=== PATIENT | female | born 1985 | race American Indian/Alaskan Native ===

== ENCOUNTER 2018-04-07 11:57 | Emergency (ER) | payer SELFPAY ==
[2018-04-07 13:53] LABS: Bacteria,Urine 1+ /HPF (Negative); Bilirubin,Urine NEG (Negative); Blood,Urine SM (Negative); Color,Urine Yellow (Yellow); HCG Qualitative,Urine Negative (Negative); Mucus,Urine FEW /HPF; Protein,Urine <15 mg/dL mg/dL (Negative); Urobilinogen,Urine < 2.0 mg/dL (<2.0)
[2018-04-07] MEDS ORDERED: TORADOL IM ONE (15:03)
--- NOTE | 2018-04-07 15:16 | Emergency Department Report ---
ED Female HPI - General Chief complaint: Urogenital-Female Stated complaint: PELVIC PAIN Time Seen by Provider: 04/07/18 14:47 Source: patient Mode of arrival: Ambulatory Limitations: No Limitations - History of Present Illness Initial comments: 32-year-old female with cough for IUD placement placed 2 years ago presents to the hospital pending a pelvic pain and inability to feel her IUD strings. Pelvic pain 2 days as moderate to severe in intensity, constant, worse palpation and movement. Patient states she had some vaginal spotting yesterday at the urination but did not have any continued vaginal bleeding. She denies vaginal discharge, fever, nausea, vomiting, or dysuria. She sexually active with one partner and does not use condoms. - Related Data Previous Rx's Medication Instructions Recorded Last Taken Type Ibuprofen [Motrin 600 MG tab] 600 mg PO Q6H PRN #30 tablet 03/03/16 Unknown Rx Ibuprofen [Motrin] 800 mg PO Q8HR PRN #30 tablet 04/07/18 Unknown Rx traMADol [Ultram 50 MG tab] 50 mg PO Q6HR PRN #20 tablet 04/07/18 Unknown Rx Allergies Allergy/AdvReac Type Severity Reaction Status Date / Time Sulfa (Sulfonamide Allergy Severe Swelling Verified 01/27/16 13:42 Antibiotics) ED Review of Systems ROS: Stated complaint: PELVIC PAIN Other details as noted in HPI Comment: All other systems reviewed and negative ED Past Medical Hx - Past Medical History Hx Hypertension: No Hx Congestive Heart Failure: No Hx Diabetes: No Hx Deep Vein Thrombosis: No Hx Renal Disease: No Hx Sickle Cell Disease: No Hx Seizures: No Hx Asthma: No Hx COPD: No Hx HIV: No - Surgical History Hx Cholecystectomy: Yes Additional Surgical History: r) hand surg - Social History Smoking Status: Never Smoker Substance Use Type: None - Medications Home Medications: Home Medications Medication Instructions Recorded Confirmed Last Taken Type Ibuprofen [Motrin 600 MG tab] 600 mg PO Q6H PRN #30 tablet 03/03/16 Unknown Rx Ibuprofen [Motrin] 800 mg PO Q8HR PRN #30 tablet 04/07/18 Unknown Rx traMADol [Ultram 50 MG tab] 50 mg PO Q6HR PRN #20 tablet 04/07/18 Unknown Rx ED Physical Exam - General Limitations: No Limitations - Other Other exam information: General: No limitations, patient is alert in no acute distress Head exam: Atraumatic, normocephalic Eyes exam: Normal appearance ENT: Moist mucous membrane, normal oropharynx Neck exam: Normal inspection, full range of motion Respiratory exam: Clear to auscultation bilateral, no wheezes, rales, crackles Cardiovascular: Normal rate and rhythm, normal heart sounds Abdomen: Soft, nondistended, pelvic tenderness, with normal bowel sounds, no rebound, or guarding : IUD string visualized, white non-mild odorous discharge noted, no CMT Extremity: Full range of motion normal inspection no deformity Back: Normal Inspection, full range of motion, no tenderness Neurologic: Alert, oriented x3, cranial nerves intact, no motor or sensory deficit Psychiatric: normal affect, normal mood Skin: Warm, dry, intact ED Course Vital Signs 04/07/18 04/07/18 12:49 17:03 Temperature 99.3 F 98.5 F Pulse Rate 81 58 L Respiratory 16 Rate Blood Pressure 116/64 Blood Pressure 98/53 [Left] O2 Sat by Pulse 100 98 Oximetry - Consultations Consultation #1: 04/07/18 Dr Oanh Thayer protective services case worker was consulted and came to the ED to remove IUD and rec Depo shot (see her notes and orders) ED Medical Decision Making - Lab Data wet prep< 20 clue cells. neg trich, yeast - Radiology Data Radiology results: report reviewed read by radiology transvag/pelvic us intrauterine device in the endocervical canal - Medical Decision Making Pelvic pain Secondary to migration of intrauterine device into the endocervical canal IUD removed by HIGHER LEVEL TEACHING ASSISTANT Depo-Provera prior to discharge for protection Outpatient follow-up recommended GC/chlamydia pending Wet prep less than 20 clue cells without symptoms of bacterial vaginosis - Differential Diagnosis PID, cervicitis, IUD misplacement, vaginitis, UTI, ectopic Critical Care Time: No Critical care attestation.: If time is entered above; I have spent that time in minutes in the direct care of this critically ill patient, excluding procedure time. ED Disposition Clinical Impression: IUD migration, Pelvic pain Disposition: TO HOME OR SELFCARE Is pt being admited?: No Does the pt Need Aspirin: No Condition: Stable Instructions: Abdominal Pain (ED) Additional Instructions: Take the medication as prescribed and as needed for pain. IUD was removed by the HIGHER LEVEL TEACHING ASSISTANT doctor planning consultant and you were treated with Depo-Provera for protection. Follow-up with the HIGHER LEVEL TEACHING ASSISTANT doctor provided with a HIGHER LEVEL TEACHING ASSISTANT doctor of your choice. Return is symptoms worsen as indicated by your discharge instructions. Your gonorrhea and chlamydia tests are pending and take approximately 3-4 days result. You may obtain results in medical records with a photo ID. You may also obtain results through the follow-up doctor office via medical record request. Prescriptions: Ibuprofen [Motrin] 800 mg PO Q8HR PRN #30 tablet PRN Reason: Pain traMADol [Ultram 50 MG tab] 50 mg PO Q6HR PRN #20 tablet PRN Reason: Pain Referrals: JOSE MANUEL THAYER MD [Staff Physician] - 3-5 Days (HIGHER LEVEL TEACHING ASSISTANT ) Time of Disposition: 18:41
[2018-04-07 17:05] VITALS: BP 98/53
[2018-04-07] MEDS ORDERED: TYLENOL PO ONE (17:34)
--- NOTE | 2018-04-07 18:22 | Consultation ---
History of Present Illness Consult date: 04/07/18 Requesting physician: JEROME LO Reason for consult: other (Pelvic Pain, Malpositioned IUD ) History of present illness: Pt is a 32 year old -[place] female LMP March 2018 (unsure date) presents with two days of worsening pelvic pain. She presented to the ED today when the pain intensified. She had a pelvic ultrasound that revealed an IUD in the endocervical canal. I have been consulted for IUD removal. Past History Past Medical History: no pertinent history Past Surgical History: cholecystectomy Social history: no significant social history - Obstetrical History : 7 Para: 6 Hx # Term Pregnancies: 6 Number of Pregnancies: 0 Spontaneous Abortions: 0 Induced : 1 Number of Living Children: 6 Medications and Allergies Allergies Allergy/AdvReac Type Severity Reaction Status Date / Time Sulfa (Sulfonamide Allergy Severe Swelling Verified 01/27/16 13:42 Antibiotics) Home Medications Medication Instructions Recorded Confirmed Last Taken Type Ibuprofen [Motrin 600 MG tab] 600 mg PO Q6H PRN #30 tablet 03/03/16 Unknown Rx Review of Systems All systems: negative - Vital Signs Vital signs: Vital Signs Temp Pulse BP Pulse Ox 99.3 F 81 116/64 100 04/07/18 12:49 04/07/18 12:49 04/07/18 12:49 04/07/18 12:49 Temp Pulse Resp BP Pulse Ox 98.5 F 58 L 16 98/53 98 04/07/18 17:03 04/07/18 17:03 04/07/18 17:03 04/07/18 17:03 04/07/18 17:03 - Physical Exam Genitourinary (Female): Positive: normal external genitalia Cervix: Positive: other (Cervix with inferior aspect of IUD visible at external os ) Results All other labs normal. Assessment and Plan A: Pelvic Pain Malpositioned IUD P: IUD has been removed in its entirety DepoProvera 150 mg IM for contraception prior to discharge Pt should follow up with a HARDNESS TESTER for routine gynecologic care
[2018-04-07] MEDS ORDERED: DEPO-PROVERA (CONTRACEPTION) IM ONE (19:00)
--- NOTE | 2018-04-09 14:27 | Ultrasound Report ---
FINAL REPORT PROCEDURE: US TRANSVAGINAL and transabdominal TECHNIQUE: Real-time transabdominal sonography in multiple planes of the pelvis was performed. The pelvic structures were not optimally visualized. Transvaginal sonography was then performed to better evaluate the structures and/or abnormalities described below with image documentation. Grayscale, color flow Doppler imaging and velocity spectral waveform analysis of the ovaries was employed (duplex imaging). CPT 76754, 67400, and 69786 HISTORY: copper iud pelvic pain COMPARISON: No prior studies are available for comparison. FINDINGS: UTERUS Size: 7.5 x 3.1 x 4.8 cm. Endometrial thickness: 8 mm. Orientation: Retroverted. Cervix: Intrauterine device is seen in the endocervical canal. Fibroids/masses: None. RIGHT Ovary: 3.5 x 2.5 x 2.3 cm. Appearance: Normal. Doppler images: Normal spectral waveforms and color flow. The systolic and diastolic velocities are within normal limits. LEFT Ovary: 3.3 x 1.8 x 2.7 cm. Appearance: Normal. Doppler images: Normal spectral waveforms and color flow. The systolic and diastolic velocities are within normal limits. Pelvic fluid: None. Other: None. IMPRESSION: Intrauterine device is in the endocervical canal. Recommend gynecologic consultation.
--- NOTE | 2018-04-09 14:27 | Ultrasound Report ---
FINAL REPORT PROCEDURE: US TRANSVAGINAL and transabdominal TECHNIQUE: Real-time transabdominal sonography in multiple planes of the pelvis was performed. The pelvic structures were not optimally visualized. Transvaginal sonography was then performed to better evaluate the structures and/or abnormalities described below with image documentation. Grayscale, color flow Doppler imaging and velocity spectral waveform analysis of the ovaries was employed (duplex imaging). CPT 93190, 92009, and 86422 HISTORY: copper iud pelvic pain COMPARISON: No prior studies are available for comparison. FINDINGS: UTERUS Size: 7.5 x 3.1 x 4.8 cm. Endometrial thickness: 8 mm. Orientation: Retroverted. Cervix: Intrauterine device is seen in the endocervical canal. Fibroids/masses: None. RIGHT Ovary: 3.5 x 2.5 x 2.3 cm. Appearance: Normal. Doppler images: Normal spectral waveforms and color flow. The systolic and diastolic velocities are within normal limits. LEFT Ovary: 3.3 x 1.8 x 2.7 cm. Appearance: Normal. Doppler images: Normal spectral waveforms and color flow. The systolic and diastolic velocities are within normal limits. Pelvic fluid: None. Other: None. IMPRESSION: Intrauterine device is in the endocervical canal. Recommend gynecologic consultation. PROCEDURE: TECHNIQUE: HISTORY: COMPARISON: FINDINGS: IMPRESSION:
== END 2018-04-07 19:01 | disposition home or self-care (01) ==
LOC: ED 11:57
DX: T83.89XA Other specified complication of genitourinary prosthetic devices, implants and grafts, initial encounter (principal); R10.2 Pelvic and perineal pain; Y92.89 Other specified places as the place of occurrence of the external cause
CPT/HCPCS: 76830; 76856; 81001; 81025; 87210; 87591; 96372; 99284; J1050; J1885

== ENCOUNTER 2018-10-30 08:50 | Emergency (ER) | payer SELFPAY ==
[2018-10-30 09:01] VITALS: BP 117/72
[2018-10-30] MEDS ORDERED: IBUPROFEN PO ONE (09:16)
[2018-10-30] MEDS ORDERED: VEETIDS PO ONE (09:16)
--- NOTE | 2018-10-30 09:18 | Emergency Department Report ---
HPI - General Chief Complaint: Dental/Oral Time Seen by Provider: 10/30/18 09:03 - HPI HPI: 43-year-old -[place] female presents to the emergency department with complaint of a week history of a dental abscess. She says it started off as a small bump but has gotten progressively bigger and more painful. She complains of some swelling to the right side of her face for the past 2 or 3 days. She has not taken anything for her symptoms prior to arrival. She denies any significant past medical history. She denies any fever, drooling, difficulty swallowing. ED Past Medical Hx - Past Medical History Previous Medical History?: Yes Hx Hypertension: No Hx Congestive Heart Failure: No Hx Diabetes: No Hx Deep Vein Thrombosis: No Hx Renal Disease: No Hx Sickle Cell Disease: No Hx Seizures: No Hx Asthma: No Hx COPD: No Hx HIV: No Additional medical history: Vaginal delivery x 6 - Surgical History Past Surgical History?: Yes Hx Cholecystectomy: Yes Additional Surgical History: rl hand surg - Social History Smoking Status: Current Every Day Smoker Substance Use Type: Alcohol - Medications Home Medications: Home Medications Medication Instructions Recorded Confirmed Last Taken Type Ibuprofen [Motrin 600 MG tab] 600 mg PO Q6H PRN #30 tablet 03/03/16 Unknown Rx Ibuprofen [Motrin] 800 mg PO Q8HR PRN #30 tablet 04/07/18 Unknown Rx traMADol [Ultram 50 MG tab] 50 mg PO Q6HR PRN #20 tablet 04/07/18 Unknown Rx HYDROcodone/APAP 5-325 [[place] 1 each PO Q6HR PRN #10 tablet 10/30/18 Unknown Rx 5/325] Penicillin Vk [Veetids TAB] 500 mg PO Q6H #28 tablet 10/30/18 Unknown Rx ED Review of Systems ROS: Stated complaint: SWOLLEN ON SIDE OF FACE Other details as noted in HPI Comment: All other systems reviewed and negative Constitutional: denies: chills, fever Eyes: denies: eye pain, eye discharge, vision change ENT: dental pain, other (facial swelling) Respiratory: denies: cough, shortness of breath Cardiovascular: denies: chest pain, palpitations Gastrointestinal: denies: abdominal pain, nausea Genitourinary: denies: dysuria, discharge Musculoskeletal: denies: back pain, arthralgia Skin: other (dental abscess, facial swelling). denies: rash, pruritus Neurological: denies: headache, weakness Physical Exam - Physical Exam Vital Signs: Vital Signs 10/30/18 08:56 Temperature 98 F Pulse Rate 100 H Respiratory 18 Rate Blood Pressure 117/72 O2 Sat by Pulse 97 Oximetry Physical Exam: GENERAL: The patient is well-developed well-nourished. HEENT: Normocephalic. Atraumatic. Patient has moist mucous membranes. There is no tonsillar hypertrophy, erythema or exudates. No drooling or trismus. Patient has some tenderness to palpation to the right upper dental/, region about the level of the first and second premolars. There is a small fluctuant abscess seen just lateral and above these particular tooth. EYES: Extraocular motions are intact. NECK: Supple. Trachea is midline. CHEST/LUNGS: Clear to auscultation. There is no respiratory distress noted. HEART/CARDIOVASCULAR: Regular. There is no tachycardia. There is no obvious murmur. ABDOMEN: There is no abdominal distention. SKIN: Skin is warm and dry. There is some mild right lower facial swelling over the maxilla. NEURO: The patient is awake, alert, and oriented. The patient is cooperative. The patient has no focal neurologic deficits. The patient has normal speech. MUSCULOSKELETAL: There is no tenderness or deformity. There is no limitation range of motion. There is no evidence of acute injury. ED Course Vital Signs 10/30/18 08:56 Temperature 98 F Pulse Rate 100 H Respiratory 18 Rate Blood Pressure 117/72 O2 Sat by Pulse 97 Oximetry - I & D Right Jaw Type of Procedure: Simple Site: dental abscess next to right upper premolars Blade Size: needle I&D I & D Procedure: sterile drapes applied Progress: An 18-gauge needle was attached to a 6 mL syringe. The abscess was cannulated and there was less than 1 mL of purulent drainage/return. There was about 3 mL of estimated blood loss. Pressure was held with sterile gauze until bleeding stops. There are no obvious or significant complications from this procedure and the patient tolerated the procedure well. ED Medical Decision Making - Medical Decision Making Patient presents with one-week history of progressively worsening dental abscess and a few days of some facial swelling. No drooling or trismus and there is a good view of her entire posterior pharynx. There is no tenderness or swelling underneath the tongue with concerns for any German angina. Vital signs stable including being afebrile. A needle I&D was done with a small amount of purulent drainage. Patient was started on antibiotics. There should now be an opening towards the abscess and the patient will use some warm compresses around that gumline to try and express more of the infection. She is been given a prescription for pain medication and antibiotics and a referral for a dental clinic. She will return to the ER with any worsening of her symptoms or any acute distress. - Differential Diagnosis dental abscess, salivary stone, dental caries Critical Care Time: No Critical care attestation.: If time is entered above; I have spent that time in minutes in the direct care of this critically ill patient, excluding procedure time. ED Disposition Clinical Impression: Dental abscess, Toothache, Jaw pain Disposition: TO HOME OR SELFCARE Is pt being admited?: No Condition: Stable Instructions: Dental Abscess (ED), Toothache (ED) Additional Instructions: Please follow up with a dentist or dental clinic as soon as possible. Take the antibiotics as prescribed. Return to the emergency Department with any worsening of your symptoms including worsening facial swelling, difficulty swallowing, drooling, development of fever, any acute distress. You have been prescribed a medication that can be sedating. Therefore, this medication cannot be taken prior to driving, working, being responsible for children, and cannot be mixed with alcohol of any quantity. Prescriptions: HYDROcodone/APAP 5-325 [[place] 5/325] 1 each PO Q6HR PRN #10 tablet PRN Reason: Pain Penicillin Vk [Veetids TAB] 500 mg PO Q6H #28 tablet Referrals: PRIMARY CARE, [Primary Care Provider] - 2-3 Days [facility] [Outside] - [facility] Time of Disposition: 09:20
== END 2018-10-30 09:55 | disposition home or self-care (01) ==
LOC: ED 08:50
DX: K04.7 Periapical abscess without sinus (principal); F17.200 Nicotine dependence, unspecified, uncomplicated; Z88.2 Allergy status to sulfonamides; Z90.49 Acquired absence of other specified parts of digestive tract

== ENCOUNTER 2018-11-11 15:51 | Emergency (ER) | payer SELFPAY ==
[2018-11-11] MEDS ORDERED: TYLENOL PO ONE (17:49)
[2018-11-11] MEDS ORDERED: TYLENOL ONE (17:50)
[2018-11-11] MEDS ORDERED: ZOFRAN IV ONE (19:06)
[2018-11-11] MEDS ORDERED: DILAUDID IV ONE (19:06)
[2018-11-11] MEDS ORDERED: CLEOCIN PO ONE (19:06)
[2018-11-11] MEDS ORDERED: TORADOL IV ONE (19:19)
--- NOTE | 2018-11-11 19:19 | Emergency Department Report ---
ED ENT HPI - General Chief complaint: Dental/Oral Stated complaint: MOUTH PAIN/ABSCESS Time Seen by Provider: 11/11/18 19:02 Source: patient Mode of arrival: Ambulatory Limitations: No Limitations - History of Present Illness Initial comments: 33-year-old female presents to the hospital complaining of right upper jaw pain and swelling since yesterday. Swelling worsened upon awakening this morning. No Reports a fever. Plane of 10/10 pain is constant and worse with palpation and opening jaw. Also hurts to eat. Patient denies fever. Similar episode occurred in October and she had an IUD of her gingiva performed by ED physician. Patient did not follow-up with the dentist. - Related Data Previous Rx's Medication Instructions Recorded Last Taken Type Ibuprofen [Motrin 600 MG tab] 600 mg PO Q6H PRN #30 tablet 03/03/16 Unknown Rx Ibuprofen [Motrin] 800 mg PO Q8HR PRN #30 tablet 04/07/18 Unknown Rx traMADol [Ultram 50 MG tab] 50 mg PO Q6HR PRN #20 tablet 04/07/18 Unknown Rx HYDROcodone/APAP 5-325 [[place] 1 each PO Q6HR PRN #10 tablet 10/30/18 Unknown Rx 5/325] Penicillin Vk [Veetids TAB] 500 mg PO Q6H #28 tablet 10/30/18 Unknown Rx Clindamycin [Clindamycin CAP] 450 mg PO Q8HR 7 Days capsule 11/11/18 Unknown Rx Ibuprofen [Motrin] 800 mg PO Q8HR PRN #30 tablet 11/11/18 Unknown Rx oxyCODONE /ACETAMINOPHEN [Percocet 1 tab PO Q6HR PRN #20 tablet 11/11/18 Unknown Rx 5/325] Allergies Allergy/AdvReac Type Severity Reaction Status Date / Time Sulfa (Sulfonamide Allergy Severe Swelling Verified 01/27/16 13:42 Antibiotics) ED Dental HPI - General Chief complaint: Dental/Oral Stated complaint: MOUTH PAIN/ABSCESS Time Seen by Provider: 11/11/18 19:02 Source: patient Mode of arrival: Ambulatory Limitations: No Limitations - Related Data Previous Rx's Medication Instructions Recorded Last Taken Type Ibuprofen [Motrin 600 MG tab] 600 mg PO Q6H PRN #30 tablet 03/03/16 Unknown Rx Ibuprofen [Motrin] 800 mg PO Q8HR PRN #30 tablet 04/07/18 Unknown Rx traMADol [Ultram 50 MG tab] 50 mg PO Q6HR PRN #20 tablet 04/07/18 Unknown Rx HYDROcodone/APAP 5-325 [[place] 1 each PO Q6HR PRN #10 tablet 10/30/18 Unknown Rx 5/325] Penicillin Vk [Veetids TAB] 500 mg PO Q6H #28 tablet 10/30/18 Unknown Rx Clindamycin [Clindamycin CAP] 450 mg PO Q8HR 7 Days capsule 11/11/18 Unknown Rx Ibuprofen [Motrin] 800 mg PO Q8HR PRN #30 tablet 11/11/18 Unknown Rx oxyCODONE /ACETAMINOPHEN [Percocet 1 tab PO Q6HR PRN #20 tablet 11/11/18 Unknown Rx 5/325] Allergies Allergy/AdvReac Type Severity Reaction Status Date / Time Sulfa (Sulfonamide Allergy Severe Swelling Verified 01/27/16 13:42 Antibiotics) ED Review of Systems ROS: Stated complaint: MOUTH PAIN/ABSCESS Other details as noted in HPI Comment: All other systems reviewed and negative ED Past Medical Hx - Past Medical History Hx Hypertension: No Hx Congestive Heart Failure: No Hx Diabetes: No Hx Deep Vein Thrombosis: No Hx Renal Disease: No Hx Sickle Cell Disease: No Hx Seizures: No Hx Asthma: No Hx COPD: No Hx HIV: No Additional medical history: Vaginal delivery x 6 - Surgical History Hx Cholecystectomy: Yes Additional Surgical History: rl hand surg - Social History Smoking Status: Current Every Day Smoker Substance Use Type: None - Medications Home Medications: Home Medications Medication Instructions Recorded Confirmed Last Taken Type Ibuprofen [Motrin 600 MG tab] 600 mg PO Q6H PRN #30 tablet 03/03/16 Unknown Rx Ibuprofen [Motrin] 800 mg PO Q8HR PRN #30 tablet 04/07/18 Unknown Rx traMADol [Ultram 50 MG tab] 50 mg PO Q6HR PRN #20 tablet 04/07/18 Unknown Rx HYDROcodone/APAP 5-325 [[place] 1 each PO Q6HR PRN #10 tablet 10/30/18 Unknown Rx 5/325] Penicillin Vk [Veetids TAB] 500 mg PO Q6H #28 tablet 10/30/18 Unknown Rx Clindamycin [Clindamycin CAP] 450 mg PO Q8HR 7 Days capsule 11/11/18 Unknown Rx Ibuprofen [Motrin] 800 mg PO Q8HR PRN #30 tablet 11/11/18 Unknown Rx oxyCODONE /ACETAMINOPHEN [Percocet 1 tab PO Q6HR PRN #20 tablet 11/11/18 Unknown Rx 5/325] ED Physical Exam - General Limitations: No Limitations - Other Other exam information: General: No limitations, patient is alert in no acute distress Head exam: Atraumatic, normocephalic Eyes exam: Normal appearance ENT: Moist mucous membrane, swelling to gum at #3 with tenderness. Swelling to right buccal mucosa Neck exam: Normal inspection, full range of motion, no meningismus nontender Respiratory exam: Clear to auscultation bilateral, no wheezes, rales, crackles Cardiovascular: Normal rate and rhythm, normal heart sounds Abdomen: Soft, nondistended, and nontender, with normal bowel sounds, no rebound, or guarding Extremity: Full range of motion normal inspection no deformity Back: Normal Inspection, full range of motion, no tenderness Neurologic: Alert, oriented x3, cranial nerves intact, no motor or sensory deficit Psychiatric: normal affect, normal mood Skin: Warm, dry, intact ED Course Vital Signs 11/11/18 11/11/18 11/11/18 16:24 20:18 20:19 Temperature 98.4 F Pulse Rate 79 71 Respiratory 17 18 18 Rate Blood Pressure 116/83 Blood Pressure 134/75 [Left] O2 Sat by Pulse 99 99 99 Oximetry - I & D Right Type of Procedure: Simple Site: dental abscess Blade Size: 11 Progress: I attempted an infraorbital nerve block however, patient did not have anesthesia at the area of abscess. local injection of lidocaine w/epi at gum area of abscess. 11 blade used to open the abscess and a small amount of pus excised. ED Medical Decision Making - Medical Decision Making Patient treated with Dilaudid for pain. Received clindamycin antibiotic and local I&D of the gum. Patient will be discharged on antibiotics of dental abscess and outpatient dental follow-up will be encouraged. - Differential Diagnosis apical abscess, dental abscess Critical Care Time: No Critical care attestation.: If time is entered above; I have spent that time in minutes in the direct care of this critically ill patient, excluding procedure time. ED Disposition Clinical Impression: Dental abscess Disposition: TO HOME OR SELFCARE Is pt being admited?: No Does the pt Need Aspirin: No Condition: Stable Instructions: Dental Abscess (ED) Additional Instructions: Take the medication as prescribed. Follow up with a dentist for further management. Return if symptoms worsen as indicated by your discharge instructions Prescriptions: Clindamycin [Clindamycin CAP] 450 mg PO Q8HR 7 Days capsule Ibuprofen [Motrin] 800 mg PO Q8HR PRN #30 tablet PRN Reason: Pain, Moderate (4-6) oxyCODONE /ACETAMINOPHEN [Percocet 5/325] 1 tab PO Q6HR PRN #20 tablet PRN Reason: Pain Referrals: [facility] [Outside] - 3-5 Days [facility] Milian [Other] - 3-5 Days (Dentist Royce Milian DDS) Time of Disposition: 22:30
[2018-11-11] MEDS ORDERED: MARCAINE-EPI/PF 0.25%-1:200,000 INFILTRATI ONE (19:22)
[2018-11-11] MEDS: XYLOCAINE 1%/ EPI 1:100,000 INFILTRATI NR ×2 (19:30→19:45)
[2018-11-11 20:19] VITALS: BP 134/75
== END 2018-11-11 22:36 | disposition home or self-care (01) ==
LOC: ED 15:51
DX: K04.7 Periapical abscess without sinus (principal); F17.200 Nicotine dependence, unspecified, uncomplicated; Z90.49 Acquired absence of other specified parts of digestive tract; Z88.2 Allergy status to sulfonamides
CPT/HCPCS: 41800; 96374; 96375; 99283; J1170; J1885; J2405

== ENCOUNTER 2018-11-14 17:21 | Emergency (ER) | payer SELFPAY ==
[2018-11-14 20:04] VITALS: BP 127/65
[2018-11-14] MEDS ORDERED: NACL 0.9% 1000 ML 1,000 ML IV ONE (20:12)
[2018-11-14] MEDS ORDERED: CLEOCIN 900 MG/50 mL 900 MG/50 ML BAG IV ONE (20:12)
[2018-11-14] MEDS ORDERED: MORPHINE IV ONE ×2 (20:12→23:26)
[2018-11-14] MEDS ORDERED: ZOFRAN IV ONE (20:12)
[2018-11-14] MEDS ORDERED: DECADRON IV ONE (20:13)
--- NOTE | 2018-11-14 20:22 | Emergency Department Report ---
ED ENT HPI - General Chief complaint: Dental/Oral Stated complaint: SWOLLEN FACE DUE TO ABSCESS Time Seen by Provider: 11/14/18 19:52 Source: patient Mode of arrival: Ambulatory Limitations: No Limitations - History of Present Illness Initial comments: Patient is 33 years old female with no significant past medical history. Patient presented to the ER complaining of severe dental abscess on the right upper side associated with significant swelling. Patient was seen here 3 days ago and abscess was drained by Dr. Dixon. Patient went to see her dentist today and referred back into the emergency room and stating that she was told that this could kill her. Patient is very upset. Patient denied any difficulty swallowing or difficulty breathing. No stridor. Patient also denied any fever. MD complaint: tooth pain - Related Data Previous Rx's Medication Instructions Recorded Last Taken Type Ibuprofen [Motrin 600 MG tab] 600 mg PO Q6H PRN #30 tablet 03/03/16 Unknown Rx Ibuprofen [Motrin] 800 mg PO Q8HR PRN #30 tablet 04/07/18 Unknown Rx traMADol [Ultram 50 MG tab] 50 mg PO Q6HR PRN #20 tablet 04/07/18 Unknown Rx HYDROcodone/APAP 5-325 [Nahma 1 each PO Q6HR PRN #10 tablet 10/30/18 Unknown Rx 5/325] Penicillin Vk [Veetids TAB] 500 mg PO Q6H #28 tablet 10/30/18 Unknown Rx Clindamycin [Clindamycin CAP] 450 mg PO Q8HR 7 Days capsule 11/11/18 Unknown Rx Ibuprofen [Motrin] 800 mg PO Q8HR PRN #30 tablet 11/11/18 Unknown Rx oxyCODONE /ACETAMINOPHEN [Percocet 1 tab PO Q6HR PRN #20 tablet 11/11/18 Unknown Rx 5/325] Allergies Allergy/AdvReac Type Severity Reaction Status Date / Time Sulfa (Sulfonamide Allergy Severe Swelling Verified 01/27/16 13:42 Antibiotics) ED Dental HPI - General Chief complaint: Dental/Oral Stated complaint: SWOLLEN FACE DUE TO ABSCESS Time Seen by Provider: 11/14/18 19:52 Source: patient Mode of arrival: Ambulatory Limitations: No Limitations - Related Data Previous Rx's Medication Instructions Recorded Last Taken Type Ibuprofen [Motrin 600 MG tab] 600 mg PO Q6H PRN #30 tablet 04/28/16 Unknown Rx Ibuprofen [Motrin] 800 mg PO Q8HR PRN #30 tablet 04/07/18 Unknown Rx traMADol [Ultram 50 MG tab] 50 mg PO Q6HR PRN #20 tablet 04/07/18 Unknown Rx HYDROcodone/APAP 5-325 [Nahma 1 each PO Q6HR PRN #10 tablet 10/30/18 Unknown Rx 5/325] Penicillin Vk [Veetids TAB] 500 mg PO Q6H #28 tablet 10/30/18 Unknown Rx Clindamycin [Clindamycin CAP] 450 mg PO Q8HR 7 Days capsule 11/11/18 Unknown Rx Ibuprofen [Motrin] 800 mg PO Q8HR PRN #30 tablet 11/11/18 Unknown Rx oxyCODONE /ACETAMINOPHEN [Percocet 1 tab PO Q6HR PRN #20 tablet 11/11/18 Unknown Rx 5/325] Allergies Allergy/AdvReac Type Severity Reaction Status Date / Time Sulfa (Sulfonamide Allergy Severe Swelling Verified 01/27/16 13:42 Antibiotics) ED Review of Systems ROS: Stated complaint: SWOLLEN FACE DUE TO ABSCESS Other details as noted in HPI Comment: All other systems reviewed and negative Constitutional: denies: chills, fever ENT: dental pain. denies: ear pain, throat pain, hearing loss, epistaxis, congestion Respiratory: denies: cough, orthopnea Cardiovascular: denies: chest pain, palpitations Gastrointestinal: denies: abdominal pain, nausea, vomiting, diarrhea, constipation, hematemesis, melena, hematochezia Musculoskeletal: denies: back pain Neurological: denies: headache, weakness ED Past Medical Hx - Past Medical History Hx Hypertension: No Hx Congestive Heart Failure: No Hx Diabetes: No Hx Deep Vein Thrombosis: No Hx Renal Disease: No Hx Sickle Cell Disease: No Hx Seizures: No Hx Asthma: No Hx COPD: No Hx HIV: No Additional medical history: Vaginal delivery x 6 - Surgical History Hx Cholecystectomy: Yes Additional Surgical History: rl hand surg - Social History Smoking Status: Current Every Day Smoker Substance Use Type: None - Medications Home Medications: Home Medications Medication Instructions Recorded Confirmed Last Taken Type Ibuprofen [Motrin 600 MG tab] 600 mg PO Q6H PRN #30 tablet 03/03/16 Unknown Rx Ibuprofen [Motrin] 800 mg PO Q8HR PRN #30 tablet 04/07/18 Unknown Rx traMADol [Ultram 50 MG tab] 50 mg PO Q6HR PRN #20 tablet 04/07/18 Unknown Rx HYDROcodone/APAP 5-325 [Nahma 1 each PO Q6HR PRN #10 tablet 10/30/18 Unknown Rx 5/325] Penicillin Vk [Veetids TAB] 500 mg PO Q6H #28 tablet 10/30/18 Unknown Rx Clindamycin [Clindamycin CAP] 450 mg PO Q8HR 7 Days capsule 11/11/18 Unknown Rx Ibuprofen [Motrin] 800 mg PO Q8HR PRN #30 tablet 11/11/18 Unknown Rx oxyCODONE /ACETAMINOPHEN [Percocet 1 tab PO Q6HR PRN #20 tablet 11/11/18 Unknown Rx 5/325] ED Physical Exam - General Limitations: No Limitations General appearance: alert, in no apparent distress - Head Head exam: Present: atraumatic, normocephalic, normal inspection - Eye Eye exam: Present: normal appearance, PERRL - ENT ENT exam: Present: other (significantly swollen right axillary and right jaw area. No evidence of airway compromise at this moment.) - Neck Neck exam: Present: normal inspection, full ROM. Absent: tenderness, meningismus, lymphadenopathy, thyromegaly - Respiratory Respiratory exam: Present: normal lung sounds bilaterally. Absent: respiratory distress, wheezes, rales, rhonchi, stridor, chest wall tenderness, accessory muscle use, decreased breath sounds, prolonged expiratory - Cardiovascular Cardiovascular Exam: Present: regular rate, normal rhythm, normal heart sounds - GI/Abdominal GI/Abdominal exam: Present: soft. Absent: distended, tenderness, guarding, rebound, rigid, hyperactive bowel sounds, hypoactive bowel sounds, organomegaly, bruit, pulsatile mass - Extremities Exam Extremities exam: Present: normal inspection, full ROM, normal capillary refill. Absent: pedal edema, calf tenderness - Back Exam Back exam: Present: normal inspection, full ROM. Absent: tenderness, CVA tenderness (R), CVA tenderness (L), muscle spasm, paraspinal tenderness, verte bral tenderness - Neurological Exam Neurological exam: Present: alert, oriented X3, CN II-XII intact, normal gait, reflexes normal - Psychiatric Psychiatric exam: Absent: depressed, agitated - Skin Skin exam: Present: warm, intact, normal color ED Course Vital Signs 11/14/18 11/14/18 11/14/18 17:30 19:54 20:00 Temperature 97.9 F Pulse Rate 76 Respiratory 18 Rate Blood Pressure 139/61 127/65 O2 Sat by Pulse 100 80 L 95 Oximetry ED Medical Decision Making - Lab Data Result diagrams: 11/14/18 21:46 11/14/18 21:46 - Radiology Data Radiology results: report reviewed Referring Physician: LORRIE MYERS Patient Name: SIVAKUMAR YODER Date of : 1985 Sex: Female Report Date: 2018-11-15 Report Status: Finalized Findings [facility] [address] [place] [address] Cat Scan Report Signed Patient: SIVAKUMAR YODER MR#: [id number] : 1985 Acct:[id number] Age/Sex: 33 / F ADM Date: 11/14/18 Loc: ED Attending Dr: Ordering Physician: LORRIE MYERS Date of Service: 11/14/18 Procedure(s): CT neck w con Accession Number(s): [id number] cc: LORRIE MYERS FINAL REPORT PROCEDURE: CT NECK W CON TECHNIQUE: Computerized axial tomography of the soft tissue neck was performed following the IV injection of iodinated nonionic contrast. HISTORY: neck and rt jaw maxillary swelling COMPARISON: No prior studies are available for comparison. FINDINGS: There is subcutaneous edema in the soft tissues of the right side of the face and jaw suggesting cellulitis. There is no discrete abscess. Skull and scalp: Normal. Paranasal sinuses: Normal. Nasopharynx: Normal . Oral cavity: Normal . Epiglottis/vallecula: Normal . Larynx/pyriform sinuses: Normal . Thyroid gland: Normal . Lymph nodes: There are enlarged reactive bilateral cervical lymph nodes greater on the right.. Salivary glands: Normal . Upper thorax: Normal.. IMPRESSION: There is subcutaneous edema in the soft tissues of the right side of the face and jaw suggesting cellulitis. There is no discrete abscess. There are enlarged reactive bilateral cervical lymph nodes greater on the right.. There is no airway compromise. Transcribed By: CO Dictated By: KASIA BIRCH MD Electronically Authenticated By: KASIA BIRCH MD Signed Date/Time: 11/15/1855 DD/ TD/TT: 11/15/1857 - Medical Decision Making Patient is 33 years old female with no significant past medical history. Patient presented to the ER complaining of severe dental abscess on the right upper side associated with significant swelling. Patient was seen here 3 days ago and abscess was drained by Dr. Dixon. Patient went to see her dentist today and referred back into the emergency room and stating that she was told that thi s could kill her. Patient is very upset. Patient denied any difficulty swallowing or difficulty breathing. No stridor. Patient also denied any fever. Patient received clindamycin, Decadron and morphine. Patient stated that she is feeling much better. CT face and neck did not show any evidence of abscess on the cellulitis. No airway compromise. I will continue the patient on clindamycin by mouth and I will start her on prednisone for the next 6 days and I advised her to follow-up with her primary care physician for further management. Critical care attestation.: If time is entered above; I have spent that time in minutes in the direct care of this critically ill patient, excluding procedure time. ED Disposition Clinical Impression: Dental abscess, Cellulitis of oral soft tissues Disposition: TO HOME OR SELFCARE Is pt being admited?: No Condition: Stable Instructions: Cellulitis (ED), Dental Abscess (ED) Referrals: PRIMARY CARE, [Primary Care Provider] - 3-5 Days
[2018-11-14 22:06] LABS: Basophils % (Auto) 0.4 % (0.0-1.8); Eosinophils # (Auto) 0.1 K/mm3 (0.0-0.4); Eosinophils % (Auto) 1.4 % (0.0-4.3); Hematocrit 34.4 % (30.3-42.9); Hemoglobin 11.7 gm/dl (10.1-14.3); Lymphocytes # (Auto) 1.6 K/mm3 (1.2-5.4); Lymphocytes % (Auto) 16.4 % (13.4-35.0); Mean Corpuscular HGB Conc 34 % (30-34); Mean Corpuscular Volume 86 fl (79-97); Monocytes # (Auto) 0.4 K/mm3 (0.0-0.8); Monocytes % (Auto) 3.7 % (0.0-7.3); Platelet Count 306 K/mm3 (140-440); Red Blood Count 4.01 M/mm3 (3.65-5.03)
[2018-11-14 22:20] LABS: BUN/Creatinine Ratio 20; Blood Urea Nitrogen 6 mg/dL (7-17); Calcium 8.5 mg/dL (8.4-10.2); Hemolysis Index 5
[2018-11-14] MEDS ORDERED: K-DUR PO ONE ×2 (23:22→23:59)
[2018-11-14] MEDS ORDERED: MORPHINE ONE (23:30)
[2018-11-14] MEDS ORDERED: KCL 10MEQ/100ML 10 MEQ/100 ML BAG IV SCH (23:45)
--- NOTE | 2018-11-15 00:56 | Cat Scan Report ---
FINAL REPORT PROCEDURE: CT NECK W CON TECHNIQUE: Computerized axial tomography of the soft tissue neck was performed following the IV inje ction of iodinated nonionic contrast. HISTORY: neck and rt jaw maxillary swelling COMPARISON: No prior studies are available for comparison. FINDINGS: There is subcutaneous edema in the soft tissues of the right side of the face and jaw suggesting cell ulitis. There is no discrete abscess. Skull and scalp: Normal. Paranasal sinuses: Normal. Nasopharynx: Normal . Oral cavity: Normal . Epiglottis/vallecula: Normal . Larynx/pyriform sinuses: Normal . Thyroid gland: Normal . Lymph nodes: There are enlarged reactive bilateral cervical lymph nodes greater on the right.. Salivary glands: Normal . Upper thorax: Normal.. IMPRESSION: There is subcutaneous edema in the soft tissues of the right side of the face and jaw suggesting cell ulitis. There is no discrete abscess. There are enlarged reactive bilateral cervical lymph nodes greater on the right.. There is no airway compromise.
[2018-11-15] MEDS ORDERED: MORPHINE IV ONE (01:42)
[2018-11-15] MEDS ORDERED: MORPHINE ONE (01:54)
== END 2018-11-15 02:57 | disposition home or self-care (01) ==
LOC: ED 17:21
DX: K12.2 Cellulitis and abscess of mouth (principal); F17.200 Nicotine dependence, unspecified, uncomplicated; Z90.49 Acquired absence of other specified parts of digestive tract; Z88.2 Allergy status to sulfonamides
CPT/HCPCS: 36415; 70491; 80048; 84703; 85025; 96361; 96365; 96375; 96376; 99284; J1100; J2270; J2405; J3480; J7030; Q9967

== ENCOUNTER 2020-08-18 22:09 | Emergency (ER) | payer SELFPAY | END 2020-08-18 23:10 | disposition left against medical advice (07) | LOC: ED 22:09 | DX: O20.8 Other hemorrhage in early pregnancy (principal); Z53.21 Procedure and treatment not carried out due to patient leaving prior to being seen by health care provider ==

== ENCOUNTER 2021-02-02 18:52 | Outpatient (CLI) | payer MEDICAID ==
[2021-02-02 19:50] VITALS: BP 126/59
[2021-02-02] MEDS: LACTATED RINGERS 1000 ML IV SOLN IV SCH ×2 (20:50→21:28)
--- NOTE | 2021-02-03 02:05 | Ultrasound Report ---
US OB BPP wo non-stress INDICATION / CLINICAL INFORMATION: BPP. COMPARISON: None available. FINDINGS: Single, viable 37 week 3 day intrauterine . heart rate 137. Biophysical profile: breathing movements: 2 movements: 2 posture and tone: 2 Amniotic fluid volume: 2 Total biophysical profile score 8/8. Signer Name: Alex Briones MD Signed: 02/03/2021 12:59 AM Workstation Name: [id number]
== END 2021-02-02 23:58 | disposition home or self-care (01) ==
LOC: TRG 18:52 → APU 20:00 → TRG 23:58
PROVIDERS: ATTEND Obstetrics & Gynecology
DX: O36.8130 Decreased fetal movements, third trimester, not applicable or unspecified (principal); O99.333 Smoking (tobacco) complicating pregnancy, third trimester; O47.1 False labor at or after 37 completed weeks of gestation; Z3A.37 37 weeks gestation of pregnancy
CPT/HCPCS: 59025; 76819; 96360; 96361; J7120

== ENCOUNTER 2021-02-16 15:20 | Outpatient (CLI) | payer MEDICAID ==
[2021-02-16 16:31] VITALS: BP 117/56
--- NOTE | 2021-02-16 20:14 | Ultrasound Report ---
US OB BPP wo non-stress, US OB limited INDICATION / CLINICAL INFORMATION: well being. COMPARISON: 02/02/2021 FINDINGS: BREATHING MOVEMENT = 2 GROSS BODY MOVEMENT = 2 TONE = 2 QUALITATIVE AMNIOTIC FLUID VOLUME = 2 TOTAL BIOPHYSICAL SCORE = 8/8 AMNIOTIC FLUID INDEX (cm) = 8.2 cm, within normal limits PRESENTATION: Cephalic. HEART RATE (beats per minute): 129 Additional findings: Fundal grade 3 placenta is free of the os. IMPRESSION: 1. biophysical profile = 06/13 2. No significant abnormality. Signer Name: Ruben Lawrence MD Signed: 02/16/2021 8:09 PM Workstation Name: [id number]
== END 2021-02-16 18:15 | disposition home or self-care (01) ==
LOC: TRG 15:20 → APU 15:21 → TRG 18:15
DX: Z34.93 Encounter for supervision of normal pregnancy, unspecified, third trimester (principal); Z3A.39 39 weeks gestation of pregnancy
CPT/HCPCS: 59025; 76815; 76819

== ENCOUNTER 2021-02-23 13:41 | Inpatient (IN) | payer MEDICAID ==
[2021-02-23] MEDS ORDERED: MAGNESIUM SULFATE 4 GM/100 ML BAG IV ONE (14:24)
[2021-02-23] MEDS ORDERED: MAGNESIUM SULFATE 2 GM/50 ML BAG IV ONE (14:26)
--- NOTE | 2021-02-23 14:42 | History and Physical Report ---
History of Present Illness Date of examination: 02/23/21 Date of admission: 02/23/21 13:56 Chief complaint: C/o feng times several days, and left upper quad abd pain x 1 day. She states her abd pain is worse with standing. Pt denies visual disturbances or epigastric pain. History of present illness: 35 [facility] c/o worsening FENG/pressure/neck pain x several days. She also c/o LUQ abd pain x 1 day. Pt states her abd pain is worse upon standing. She rates her FENG as greater than 10 and abd pain an 8/10. Pt denies visual problems. She had an uncomplicated on 02/17/21 under epidural anesthesia. She had complained of a FENG after delivery and was evaluated by anesthesia prior to d/c. Pt admits to a hx of migraines and a surgical hx of a cholecystectomy in 2003. She is and smokes 3 cigg per day. Family hx of HTN and DM. Upon arrival pt's b/p was 174/77. She was admitted to L&D and started on MgSo4. Past History Past Medical History: migraines Past Surgical History: cholecystectomy Family/Genetic History: diabetes, hypertension Social history: , smoking, full code - Obstetrical History : 8 Para: 7 Induced : 1 Number of Living Children: 7 Medications and Allergies Allergies Allergy/AdvReac Type Severity Reaction Status Date / Time Sulfa (Sulfonamide Allergy Severe Swelling Verified 02/19/21 11:38 Antibiotics) Home Medications Medication Instructions Recorded Confirmed Last Taken Type No Known Home Medications [No 02/17/21 02/17/21 Unknown History Reported Home Medications] Active Meds: Active Medications Magnesium Sulfate (Magnesium Sulfate 4gm/100ml) 4 gm in 100 mls @ 300 mls/hr IV ONCE ONE Stop: 02/23/21 14:43 Magnesium Sulfate (Magnesium Sulfate 2gm/50ml) 2 gm in 50 mls @ 25 mls/hr IV ONCE ONE Stop: 02/23/21 16:25 Review of Systems All systems: negative Constitutional: chronic headaches Eyes: normal appearance Ears, nose, mouth and throat: deferred Cardiovascular: high blood pressure Breasts: normal Gastrointestinal: abdominal pain, other (LUQ) Genitourinary: normal appearance, vaginal bleeding Rectal Exam: deferred Musculoskeletal: neck pain, other (Edema to santo LE) Neurological: headaches, migraines - Physical Exam Breasts: Positive: normal Abdomen: Positive: normal appearance, soft, normal bowel sounds Genitourinary (Female): Positive: normal external genitalia, normal perenium Vulva: both: normal Vagina: Positive: normal moisture Uterus: Positive: enlarged, normal contour Anus/Rectum: Positive: normal perianal skin Extremities: Positive: edema Results Result Diagrams: 02/23/21 14:40 All other labs normal. Assessment and Plan A: S/P (day 6) Preeclampsia Hx migraines LUQ abd pain p: Admit to L&D PIH labs; UDS Start MgSO4 per protocal Monitor b/p Hydralazine 10 mg IV x [address] Garzon consulted - Patient Problems (1) Preeclampsia Current Visit: Yes Status: Acute
[2021-02-23] MEDS ORDERED: LACTATED RINGERS 1,000 ML ONE (14:53)
[2021-02-23] MEDS ORDERED: MAGNESIUM SULFATE 40GM/1000ML 40 GM/1,000 ML BAG IV ONE (14:53)
[2021-02-23 14:59] LABS: Hematocrit 33.6 % (30.3-42.9); Hemoglobin 11.4 gm/dl (10.1-14.3); Mean Corpuscular HGB Conc 34 % (30-34); Mean Corpuscular Volume 84 fl (79-97); Platelet Count 306 K/mm3 (140-440); Red Cell Distribution Width 16.2 % (13.2-15.2)
[2021-02-23] MEDS: hydrALAZINE 20 MG/1 ML INJ IV PRN ×2 (15:05→20:56)
[2021-02-23 15:19] LABS: Alanine Aminotransferase 40 units/L (7-56)
[2021-02-23] MEDS: ACETAMINOPHEN 325 MG TAB PO PRN ×2 (15:23→22:17)
[2021-02-23 16:28] LABS: Uric Acid 7.1 mg/dL (3.5-7.6)
[2021-02-23] MEDS ORDERED: MAGNESIUM SULFATE 40GM/1000ML 40 GM/1,000 ML BAG IV SCH (17:00)
[2021-02-23 19:07] LABS: Bilirubin,Urine NEG (Negative); Blood,Urine MOD (Negative); Color,Urine Yellow (Yellow); Mucus,Urine FEW /HPF; Protein,Urine <15 mg/dL mg/dL (Negative); Urobilinogen,Urine < 2.0 mg/dL (<2.0)
[2021-02-23 19:12] LABS: Amphetamine Screen,Urine Negative; Benzodiazepines Screen,Urine Negative; Cannabinoid Screen,Urine Negative; Cocaine Screen,Urine Negative; Methadone Screen,Urine Negative; Opiate Screen,Urine Negative
--- NOTE | 2021-02-23 19:44 | Progress Note ---
Subjective Date of service: 02/23/21 Principal diagnosis: PreEclampsia Interval history: Anesthesia asked to re-evaluate patient for complaint of ongoing headache, neck stiffness with back pain. Labor Epidural for vaginal delivery placed 02/17/2021. 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 Patient was found in bed lying on her side sleeping. States headache is located posterior, occasionally frontal and bilateral. Headache is not associated with nausea, light sensitivity or visual changes or dizziness. Admits to vomiting once yesterday and neck stiffness is consent with movements. Neck range of motion up and down is . However side to side ROM is less painful. Headache improves slightly when supine. She also states, her upper to mid back is painful. She does not think this headache is the same. She is afebrile, vital signs stable on magnesium sulfate for preEclampcia. On exam she is awake, Neck ROM is decreased slightly, Motor exam WNL'S, moves both extremities freely. Back painful to touch. Patient refuses blood patch at this time. Would like to try Ketorolac/Toradol, since it improved her symptoms the last time. Advised to increase fluids and caffeine products. Will continue to follow. Objective - Constitutional Vitals: Vital Signs - 12hr 02/23/21 02/23/21 02/23/21 14:30 14:48 15:01 Temperature 98.3 F Pulse Rate 46 L 47 L 50 L Respiratory 20 Rate Blood Pressure 174/77 179/87 172/80 O2 Sat by Pulse Oximetry 02/23/21 02/23/21 02/23/21 15:05 15:15 15:16 Temperature Pulse Rate 63 Respiratory 20 Rate Blood Pressure 172/80 155/70 O2 Sat by Pulse 98 Oximetry 02/23/21 02/23/21 02/23/21 15:30 15:31 15:35 Temperature Pulse Rate 69 62 70 Respiratory Rate Blood Pressure 142/68 O2 Sat by Pulse 98 99 Oximetry 02/23/21 02/23/21 02/23/21 15:40 15:45 15:46 Temperature Pulse Rate 79 70 69 Respiratory Rate Blood Pressure 139/67 O2 Sat by Pulse 98 98 Oximetry 02/23/21 02/23/21 02/23/21 15:50 15:55 16:00 Temperature Pulse Rate 73 76 72 Respiratory 20 Rate Blood Pressure O2 Sat by Pulse 97 98 99 Oximetry 02/23/21 02/23/21 02/23/21 16:01 16:05 16:31 Temperature Pulse Rate 75 66 75 Respiratory Rate Blood Pressure 147/70 130/80 O2 Sat by Pulse 100 Oximetry 02/23/21 02/23/21 02/23/21 16:32 16:37 16:42 Temperature Pulse Rate 75 72 67 Respiratory Rate Blood Pressure O2 Sat by Pulse 98 98 98 Oximetry 02/23/21 02/23/21 02/23/21 16:46 16:47 16:53 Temperature Pulse Rate 77 76 71 Respiratory Rate Blood Pressure 130/82 O2 Sat by Pulse 96 97 Oximetry 02/23/21 02/23/21 02/23/21 16:58 17:00 17:01 Temperature Pulse Rate 73 60 Respiratory 19 Rate Blood Pressure 146/77 O2 Sat by Pulse 97 97 Oximetry 02/23/21 02/23/21 02/23/21 17:02 17:07 17:12 Temperature Pulse Rate 65 66 70 Respiratory Rate Blood Pressure O2 Sat by Pulse 97 96 97 Oximetry 02/23/21 02/23/21 02/23/21 17:16 17:17 17:22 Temperature Pulse Rate 60 61 60 Respiratory Rate Blood Pressure 181/79 O2 Sat by Pulse 96 95 Oximetry 02/23/21 02/23/21 02/23/21 17:23 17:27 17:31 Temperature Pulse Rate 66 62 62 Respiratory Rate Blood Pressure 147/72 O2 Sat by Pulse 94 95 Oximetry 02/23/21 02/23/21 02/23/21 17:32 17:33 17:37 Temperature Pulse Rate 64 64 65 Respiratory Rate Blood Pressure O2 Sat by Pulse 94 94 94 Oximetry 02/23/21 02/23/21 02/23/21 17:43 17:46 17:47 Temperature Pulse Rate 65 69 63 Respiratory Rate Blood Pressure 162/84 O2 Sat by Pulse 94 96 Oximetry 02/23/21 02/23/21 02/23/21 17:49 17:52 17:54 Temperature Pulse Rate 64 64 70 Respiratory Rate Blood Pressure O2 Sat by Pulse 94 95 94 Oximetry 02/23/21 02/23/21 02/23/21 17:58 18:00 18:01 Temperature Pulse Rate 69 72 64 Respiratory 19 Rate Blood Pressure 150/83 O2 Sat by Pulse 95 96 Oximetry 02/23/21 02/23/2102/23/21 18:03 18:05 18:08 Temperature Pulse Rate 64 71 72 Respiratory Rate Blood Pressure O2 Sat by Pulse 96 94 95 Oximetry 02/23/21 02/23/21 02/23/21 18:11 18:13 18:16 Temperature Pulse Rate 76 70 67 Respiratory Rate Blood Pressure 136/78 O2 Sat by Pulse 94 95 93 Oximetry 02/23/21 02/23/21 02/23/21 18:17 18:22 18:23 Temperature Pulse Rate 75 75 75 Respiratory Rate Blood Pressure O2 Sat by Pulse 95 93 93 Oximetry 02/23/21 02/23/21 02/23/21 18:27 18:31 18:32 Temperature Pulse Rate 72 67 76 Respiratory Rate Blood Pressure 147/89 O2 Sat by Pulse 98 97 Oximetry 02/23/21 02/23/21 02/23/21 18:37 18:42 18:46 Temperature Pulse Rate 59 L 73 53 L Respiratory Rate Blood Pressure 132/62 O2 Sat by Pulse 97 96 Oximetry 02/23/21 02/23/21 02/23/21 18:47 18:52 18:57 Temperature Pulse Rate 54 L 59 L 70 Respiratory Rate Blood Pressure O2 Sat by Pulse 98 97 97 Oximetry 02/23/21 02/23/21 02/23/21 19:00 19:01 19:02 Temperature Pulse Rate 72 72 Respiratory 19 Rate Blood Pressure 130/63 O2 Sat by Pulse 98 99 Oximetry 02/23/21 02/23/21 02/23/21 19:08 19:12 19:17 Temperature Pulse Rate 82 73 70 Respiratory Rate Blood Pressure O2 Sat by Pulse 99 99 96 Oximetry 02/23/21 19:22 Temperature Pulse Rate 59 L Respiratory Rate Blood Pressure O2 Sat by Pulse 97 Oximetry - Labs CBC & Chem 7: 02/23/21 14:40 02/23/21 14:40 Labs: Abnormal lab results 02/23/21 02/23/21 Range/Units 14:40 14:40 RDW 16.2 H (13.2-15.2) % Creatinine 0.4 L (0.6-1.2) mg/dL Lactate Dehydrogenase 363 H (91-180) units/L
[2021-02-23] MEDS: KETOROLAC 10 MG TAB PO PRN (20:51)
--- NOTE | 2021-02-23 21:04 | Consultation ---
History of Present Illness - Reason for Consult Consult date: 02/23/21 Medical management Requesting physician: COREY GUERRERO - History of Present Illness 35 y/o presents to L&D from [facility] [employer] with c/o worsening FENG/pressure/neck pain x several days. She also c/o LUQ abd pain x 1 day. Pt states her abd pain is worse upon standing. She rates her FENG as greater than 10 and abd pain an 8/10. Pt denies visual problems. She had an uncomplicated on 02/17/21 under epidural anesthesia. She had complained of a FENG after delivery and was evaluated by anesthesia prior to d/c. Pt admits to a hx of migraines and a surgical hx of a cholecystectomy in 2003. She is and smokes 3 cigg per day. Family hx of HTN and DM. Upon arrival pt's b/p was 174/77. She was admitted to L&D and started on MgSo4. During my examination patient's headache is better and much improved. Blood pressure elevated around 173/97 Past History Past Medical History: migraines Past Surgical History: cholecystectomy Family/Genetic History: diabetes, hypertension Social history: , smoking, full code Past History Social history: , smoking, full code Medications and Allergies Allergies Allergy/AdvReac Type Severity Reaction Status Date / Time Sulfa (Sulfonamide Allergy Severe Swelling Verified 02/19/21 11:38 Antibiotics) Home Medications Medication Instructions Recorded Confirmed Last Taken Type No Known Home Medications [No 02/17/21 02/17/21 Unknown History Reported Home Medications] Active Meds: Active Medications Acetaminophen (Acetaminophen 325 Mg Tab) 650 mg PO Q6H PRN PRN Reason: Pain, Moderate (4-6) Last Admin: 02/23/21 15:23 Dose: 650 mg Documented by: Hydralazine HCl (Hydralazine 20 Mg/1 Ml Inj) 10 mg IV Q30MIN PRN PRN Reason: Blood Pressure Last Admin: 02/23/21 20:56 Dose: 10 mg Documented by: Magnesium Sulfate (Magnesium Sulfate 40gm/1000ml) 40 gm in 1,000 mls @ 50 mls/hr IV DIRECT MIKY Lactated Ringer's (Lactated Ringers) 1,000 mls @ 75 mls/hr IV DIRECT MIKY Ketorolac Tromethamine (Ketorolac 10 Mg Tab) 10 mg PO Q4H PRN PRN Reason: Pain, Mild (1-3) Stop: 02/28/21 19:43 Last Admin: 02/23/21 20:51 Dose: 10 mg Documented by: Review of Systems All systems: negative Exam - Constitutional Vitals: Temp Pulse Resp BP Pulse Ox 98.3 F 84 18 172/97 97 02/23/21 14:30 02/23/21 20:57 02/23/21 20:51 02/23/21 20:56 02/23/21 20:57 General appearance: Present: no acute distress, well-nourished - EENT Eyes: Present: PERRL ENT: hearing intact, clear oral mucosa - Neck Neck: Present: supple, normal ROM - Respiratory Respiratory effort: normal Respiratory: bilateral: CTA - Cardiovascular Heart rate: 78 Rhythm: regular Heart Sounds: Present: S1 & S2. Absent: rub, click - Extremities Extremities: pulses symmetrical, No edema Peripheral Pulses: within normal limits - Abdominal General gastrointestinal: Present: soft, non-tender, non-distended, normal bowel sounds Female genitourinary: Present: normal - Integumentary Integumentary: Present: clear, warm, dry - Musculoskeletal Musculoskeletal: gait normal, strength equal bilaterally - Psychiatric Psychiatric: appropriate mood/affect, intact judgment & insight - Neurologic Neurologic: CNII-XII intact, moves all extremities Results - Labs CBC & Chem 7: 02/23/21 14:40 02/23/21 14:40 Labs: Abnormal lab results 02/23/21 02/23/21 Range/Units 14:40 14:40 RDW 16.2 H (13.2-15.2) % Creatinine 0.4 L (0.6-1.2) mg/dL Lactate Dehydrogenase 363 H (91-180) units/L Assessment and Plan - Patient Problems (1) Hypertension Current Visit: Yes Status: Acute (2) Hypertension affecting Current Visit: Yes Status: Acute Qualifiers: Trimester: unspecified trimester Qualified Code(s): O16.9 - Unspecified maternal hypertension, unspecified trimester Plan to address problem: Post vaginal delivery few days back Patient initiated on labetalol and patient to be discharged on oral labetalol 100 mg. Patient also getting IV magnesium sulfate for possible eclampsia (3) Headache Current Visit: Yes Status: Acute Qualifiers: Headache type: tension-type Plan to address problem: Possible tension headache Will manage with Tylenol/IV Toradol No opiates because of the breast-feeding (4) DVT prophylaxis Current Visit: Yes Status: Acute Plan to address problem: On SCDs and GI prophylaxis
[2021-02-24] MEDS: KETOROLAC 10 MG TAB PO PRN ×3 (04:01→22:03)
[2021-02-24] MEDS: LACTATED RINGERS 1,000 ML IV SCH (04:23)
[2021-02-24] MEDS: CYCLOBENZAPRINE 10 MG TAB PO SCH ×3 (06:19→20:26)
[2021-02-24] MEDS ORDERED: CYCLOBENZAPRINE 10 MG TAB PO SCH (08:00)
[2021-02-24] MEDS: KETOROLAC 30 MG/1 ML INJ IV NR (11:29)
--- NOTE | 2021-02-24 11:39 | Progress Note ---
Subjective Date of service: 02/24/21 Principal diagnosis: Headache, Neck stiffness Interval history: Follow up visit, Patient states headache is worse and would like to proceed with Epidural Blood Patch. Patient IDed, H&P reviewed, all questions and concerns were answered. Timeout was performed at bedside. Patient in sitting position. Sterile prep and drape was performed. [3] ml of 1% lidocaine skin wheal at L[3]- L [4]. 18-gauge Tuohy epidural needle was advanced to loss of resistance with saline technique 6cm. Negative CSF, negative blood. 9mL of autologous blood injected. Sterile dressing applied. Patient tolerated procedure. Objective - Constitutional Vitals: Vital Signs - 12hr 02/23/21 02/23/21 02/23/21 23:33 23:38 23:42 Temperature Pulse Rate 89 92 H 90 Respiratory Rate Blood Pressure Blood Pressure [Right] O2 Sat by Pulse 96 96 94 Oximetry 02/23/21 02/23/21 02/23/21 23:43 23:48 23:53 Temperature Pulse Rate 90 91 H 89 Respiratory Rate Blood Pressure Blood Pressure [Right] O2 Sat by Pulse 95 95 94 Oximetry 02/23/21 02/24/21 02/24/21 23:58 00:03 00:08 Temperature Pulse Rate 87 89 94 H Respiratory Rate Blood Pressure Blood Pressure [Right] O2 Sat by Pulse 95 95 95 Oximetry 02/24/21 02/24/21 02/24/21 00:13 00:15 00:18 Temperature Pulse Rate 90 87 89 Respiratory 16 Rate Blood Pressure 127/60 Blood Pressure 127/60 [Right] O2 Sat by Pulse 94 94 94 Oximetry 02/24/21 02/24/21 02/24/21 00:23 00:28 00:33 Temperature Pulse Rate 95 H 92 H 91 H Respiratory Rate Blood Pressure Blood Pressure [Right] O2 Sat by Pulse 94 94 94 Oximetry 02/24/21 02/24/21 02/24/21 00:38 00:43 00:48 Temperature Pulse Rate 90 94 H 90 Respiratory Rate Blood Pressure Blood Pressure [Right] O2 Sat by Pulse 96 97 96 Oximetry 02/24/21 02/24/21 02/24/21 00:53 00:58 01:03 Temperature Pulse Rate 91 H 94 H 91 H Respiratory Rate Blood Pressure Blood Pressure [Right] O2 Sat by Pulse 95 95 95 Oximetry 02/24/21 02/24/21 02/24/21 01:08 01:13 01:15 Temperature Pulse Rate 89 86 88 Respiratory 16 Rate Blood Pressure 126/60 Blood Pressure 126/60 [Right] O2 Sat by Pulse 95 95 96 Oximetry 02/24/21 02/24/21 02/24/21 01:18 01:23 01:28 Temperature Pulse Rate 87 89 89 Respiratory Rate Blood Pressure Blood Pressure [Right] O2 Sat by Pulse 96 97 97 Oximetry 02/24/21 02/24/21 02/24/21 01:33 01:38 01:43 Temperature Pulse Rate 88 89 88 Respiratory Rate Blood Pressure Blood Pressure [Right] O2 Sat by Pulse 97 98 97 Oximetry 02/24/21 02/24/21 02/24/21 01:48 01:53 01:58 Temperature Pulse Rate 88 90 90 Respiratory Rate Blood Pressure Blood Pressure [Right] O2 Sat by Pulse 96 96 96 Oximetry 02/24/21 02/24/21 02/24/21 02:03 02:07 02:13 Temperature Pulse Rate 89 89 92 H Respiratory Rate Blood Pressure Blood Pressure [Right] O2 Sat by Pulse 95 93 92 Oximetry 02/24/21 02/24/21 02/24/21 02:15 02:18 02:23 Temperature Pulse Rate 87 93 H 91 H Respiratory 16 Rate Blood Pressure 135/63 Blood Pressure 135/63 [Right] O2 Sat by Pulse 94 92 94 Oximetry 02/24/21 02/24/21 02/24/21 02:28 02:33 02:38 Temperature Pulse Rate 89 87 88 Respiratory Rate Blood Pressure Blood Pressure [Right] O2 Sat by Pulse 95 95 94 Oximetry 02/24/21 02/24/21 02/24/21 02:43 02:48 02:53 Temperature Pulse Rate 88 94 H 87 Respiratory Rate Blood Pressure Blood Pressure [Right] O2 Sat by Pulse 93 95 94 Oximetry 02/24/21 02/24/21 02/24/21 02:58 03:03 03:08 Temperature Pulse Rate 87 92 H 92 H Respiratory Rate Blood Pressure Blood Pressure [Right] O2 Sat by Pulse 94 98 99 Oximetry 02/24/21 02/24/21 02/24/21 03:13 03:15 03:18 Temperature 98.2 F Pulse Rate 93 H 91 H 94 H Respiratory 16 Rate Blood Pressure 135/67 Blood Pressure 135/67 [Right] O2 Sat by Pulse 99 99 98 Oximetry 02/24/21 02/24/21 02/24/21 03:23 03:28 03:33 Temperature Pulse Rate 93 H 91 H 95 H Respiratory Rate Blood Pressure Blood Pressure [Right] O2 Sat by Pulse 99 99 100 Oximetry 02/24/21 02/24/21 02/24/21 03:38 03:43 03:45 Temperature Pulse Rate 96 H 91 H 92 H Respiratory Rate Blood Pressure Blood Pressure [Right] O2 Sat by Pulse 89 95 91 Oximetry 02/24/21 02/24/21 02/24/21 03:48 03:53 03:58 Temperature Pulse Rate 91 H 91 H 90 Respiratory Rate Blood Pressure Blood Pressure [Right] O2 Sat by Pulse 96 96 96 Oximetry 02/24/21 02/24/21 02/24/21 04:01 04:03 04:08 Temperature Pulse Rate 95 H 87 Respiratory 16 Rate Blood Pressure Blood Pressure [Right] O2 Sat by Pulse 97 96 Oximetry 02/24/21 02/24/21 02/24/21 04:13 04:15 04:18 Temperature Pulse Rate 91 H 86 87 Respiratory 18 Rate Blood Pressure 136/69 Blood Pressure 136/69 [Right] O2 Sat by Pulse 98 95 95 Oximetry 02/24/21 02/24/21 02/24/21 04:23 04:28 04:33 Temperature Pulse Rate 89 94 H 89 Respiratory Rate Blood Pressure Blood Pressure [Right] O2 Sat by Pulse 94 94 96 Oximetry 02/24/21 02/24/21 02/24/21 04:38 04:43 04:48 Temperature Pulse Rate 89 93 H 90 Respiratory Rate Blood Pressure Blood Pressure [Right] O2 Sat by Pulse 97 95 96 Oximetry 02/24/21 02/24/21 02/24/21 04:53 04:58 05:03 Temperature Pulse Rate 89 91 H 91 H Respiratory Rate Blood Pressure Blood Pressure [Right] O2 Sat by Pulse 95 95 94 Oximetry 02/24/21 02/24/21 02/24/21 05:08 05:13 05:15 Temperature 98.0 F Pulse Rate 90 91 H 92 H Respiratory 16 Rate Blood Pressure 142/66 Blood Pressure 144/62 [Right] O2 Sat by Pulse 93 93 97 Oximetry 02/24/21 02/24/21 02/24/21 05:18 05:23 05:27 Temperature Pulse Rate 91 H 94 H 90 Respiratory Rate Blood Pressure Blood Pressure [Right] O2 Sat by Pulse 94 93 94 Oximetry 02/24/21 02/24/21 02/24/21 05:33 05:38 05:43 Temperature Pulse Rate 92 H 92 H 91 H Respiratory Rate Blood Pressure Blood Pressure [Right] O2 Sat by Pulse 93 93 93 Oximetry 02/24/21 02/24/21 02/24/21 05:48 05:53 05:55 Temperature Pulse Rate 95 H 91 H 93 H Respiratory Rate Blood Pressure 142/66 Blood Pressure [Right] O2 Sat by Pulse 96 97 Oximetry 02/24/21 02/24/21 02/24/21 05:58 06:03 06:08 Temperature Pulse Rate 92 H 87 87 Respiratory Rate Blood Pressure Blood Pressure [Right] O2 Sat by Pulse 97 97 97 Oximetry 02/24/21 02/24/21 02/24/21 06:13 06:15 06:18 Temperature Pulse Rate 85 82 85 Respiratory 18 Rate Blood Pressure 135/65 Blood Pressure 135/65 [Right] O2 Sat by Pulse 97 97 96 Oximetry 02/24/21 02/24/21 02/24/21 06:23 06:28 06:33 Temperature Pulse Rate 85 89 87 Respiratory Rate Blood Pressure Blood Pressure [Right] O2 Sat by Pulse 96 96 96 Oximetry 02/24/21 02/24/21 02/24/21 06:38 06:43 06:48 Temperature Pulse Rate 90 87 92 H Respiratory Rate Blood Pressure Blood Pressure [Right] O2 Sat by Pulse 95 96 95 Oximetry 02/24/21 02/24/21 02/24/21 06:53 06:58 07:03 Temperature Pulse Rate 89 90 89 Respiratory Rate Blood Pressure Blood Pressure [Right] O2 Sat by Pulse 95 96 95 Oximetry 02/24/21 02/24/21 02/24/21 07:08 07:13 07:15 Temperature Pulse Rate 90 90 87 Respiratory Rate Blood Pressure 143/69 Blood Pressure [Right] O2 Sat by Pulse 96 97 Oximetry 02/24/21 02/24/21 02/24/21 07:18 07:23 07:28 Temperature Pulse Rate 89 89 89 Respiratory Rate Blood Pressure Blood Pressure [Right] O2 Sat by Pulse 96 96 97 Oximetry 02/24/21 02/24/21 02/24/21 07:33 07:38 07:43 Temperature Pulse Rate 88 88 87 Respiratory Rate Blood Pressure Blood Pressure [Right] O2 Sat by Pulse 96 97 96 Oximetry 02/24/21 02/24/21 02/24/21 07:48 07:53 07:58 Temperature Pulse Rate 91 H 89 91 H Respiratory Rate Blood Pressure Blood Pressure [Right] O2 Sat by Pulse 97 95 95 Oximetry 02/24/21 02/24/21 02/24/21 08:03 08:08 08:13 Temperature Pulse Rate 89 91 H 88 Respiratory Rate Blood Pressure Blood Pressure [Right] O2 Sat by Pulse 95 94 94 Oximetry 02/24/21 02/24/21 02/24/21 08:15 08:18 08:23 Temperature Pulse Rate 86 87 86 Respiratory Rate Blood Pressure 135/63 Blood Pressure [Right] O2 Sat by Pulse 96 96 Oximetry 02/24/21 02/24/21 02/24/21 08:28 08:33 08:38 Temperature Pulse Rate 87 90 90 Respiratory Rate Blood Pressure Blood Pressure [Right] O2 Sat by Pulse 95 94 96 Oximetry 02/24/21 02/24/21 02/24/21 08:43 08:48 08:51 Temperature 99.2 F Pulse Rate 88 91 H 92 H Respiratory 20 Rate Blood Pressure Blood Pressure 137/70 [Right] O2 Sat by Pulse 95 94 94 Oximetry 02/24/21 02/24/21 02/24/21 08:52 08:53 08:58 Temperature Pulse Rate 91 H 92 H 89 Respiratory Rate Blood Pressure 137/70 Blood Pressure [Right] O2 Sat by Pulse 94 94 Oximetry 02/24/21 02/24/21 02/24/21 09:03 09:08 09:13 Temperature Pulse Rate 88 87 86 Respiratory Rate Blood Pressure Blood Pressure [Right] O2 Sat by Pulse 94 94 94 Oximetry 02/24/21 02/24/21 02/24/21 09:15 09:18 09:23 Temperature Pulse Rate 85 88 86 Respiratory Rate Blood Pressure 139/69 Blood Pressure [Right] O2 Sat by Pulse 94 95 Oximetry 02/24/21 02/24/21 02/24/21 09:28 09:33 09:38 Temperature Pulse Rate 87 88 88 Respiratory Rate Blood Pressure Blood Pressure [Right] O2 Sat by Pulse 95 94 94 Oximetry 02/24/21 02/24/21 02/24/21 09:43 09:48 09:53 Temperature Pulse Rate 87 87 89 Respiratory Rate Blood Pressure Blood Pressure [Right] O2 Sat by Pulse 94 95 94 Oximetry 02/24/21 02/24/21 02/24/21 09:58 10:03 10:08 Temperature Pulse Rate 90 90 88 Respiratory Rate Blood Pressure Blood Pressure [Right] O2 Sat by Pulse 95 95 94 Oximetry 02/24/21 02/24/21 02/24/21 10:13 10:15 10:18 Temperature Pulse Rate 88 87 90 Respiratory Rate Blood Pressure 139/67 Blood Pressure [Right] O2 Sat by Pulse 94 94 Oximetry 02/24/21 02/24/21 02/24/21 10:23 10:28 10:33 Temperature Pulse Rate 88 94 H 91 H Respiratory Rate Blood Pressure Blood Pressure [Right] O2 Sat by Pulse 95 96 95 Oximetry 02/24/21 02/24/21 02/24/21 10:38 10:41 10:43 Temperature Pulse Rate 100 H 96 H 99 H Respiratory Rate Blood Pressure 133/67 Blood Pressure [Right] O2 Sat by Pulse 95 97 Oximetry 02/24/21 02/24/21 02/24/21 10:48 10:53 10:58 Temperature Pulse Rate 94 H 93 H 94 H Respiratory Rate Blood Pressure Blood Pressure [Right] O2 Sat by Pulse 96 97 96 Oximetry 02/24/21 02/24/21 02/24/21 11:03 11:08 11:11 Temperature Pulse Rate 93 H 97 H 87 Respiratory Rate Blood Pressure 147/76 Blood Pressure [Right] O2 Sat by Pulse 96 91 Oximetry 02/24/21 02/24/21 02/24/21 11:13 11:15 11:18 Temperature Pulse Rate 89 86 88 Respiratory Rate Blood Pressure 153/74 Blood Pressure [Right] O2 Sat by Pulse 93 93 Oximetry 02/24/21 02/24/21 11:23 11:28 Temperature Pulse Rate 87 86 Respiratory Rate Blood Pressure Blood Pressure [Right] O2 Sat by Pulse 93 93 Oximetry - Labs CBC & Chem 7: 02/23/21 14:40 02/23/21 14:40 Labs: Abnormal lab results 02/23/21 02/23/21 02/24/21 Range/Units 14:40 14:40 00:59 RDW 16.2 H (13.2-15.2) % Creatinine 0.4 L (0.6-1.2) mg/dL Magnesium 4.70 H (1.7-2.3) mg/dL Lactate Dehydrogenase 363 H (91-180) units/L 02/24/21 Range/Units 05:54 RDW (13.2-15.2) % Creatinine (0.6-1.2) mg/dL Magnesium 5.10 H (1.7-2.3) mg/dL Lactate Dehydrogenase (91-180) units/L
--- NOTE | 2021-02-24 12:06 | Progress Note ---
Assessment and Plan headache after epidural. s/p blood patch. feels better now. Subjective Date of service: 02/24/21 Principal diagnosis: Headache, Neck stiffness Interval history: pt has headache after epidural for delivery. she had blood patch today. she is feeling much better Objective - Constitutional Vitals: Vital Signs - 12hr 02/24/21 02/24/21 02/24/21 00:08 00:13 00:15 Temperature Pulse Rate 94 H 90 87 Respiratory 16 Rate Blood Pressure 127/60 Blood Pressure 127/60 [Right] O2 Sat by Pulse 95 94 94 Oximetry 02/24/21 02/24/21 02/24/21 00:18 00:23 00:28 Temperature Pulse Rate 89 95 H 92 H Respiratory Rate Blood Pressure Blood Pressure [Right] O2 Sat by Pulse 94 94 94 Oximetry 02/24/21 02/24/21 02/24/21 00:33 00:38 00:43 Temperature Pulse Rate 91 H 90 94 H Respiratory Rate Blood Pressure Blood Pressure [Right] O2 Sat by Pulse 94 96 97 Oximetry 02/24/21 02/24/21 02/24/21 00:48 00:53 00:58 Temperature Pulse Rate 90 91 H 94 H Respiratory Rate Blood Pressure Blood Pressure [Right] O2 Sat by Pulse 96 95 95 Oximetry 02/24/21 02/24/21 02/24/21 01:03 01:08 01:13 Temperature Pulse Rate 91 H 89 86 Respiratory Rate Blood Pressure Blood Pressure [Right] O2 Sat by Pulse 95 95 95 Oximetry 02/24/21 02/24/21 02/24/21 01:15 01:18 01:23 Temperature Pulse Rate 88 87 89 Respiratory 16 Rate Blood Pressure 126/60 Blood Pressure 126/60 [Right] O2 Sat by Pulse 96 96 97 Oximetry 02/24/21 02/24/21 02/24/21 01:28 01:33 01:38 Temperature Pulse Rate 89 88 89 Respiratory Rate Blood Pressure Blood Pressure [Right] O2 Sat by Pulse 97 97 98 Oximetry 02/24/21 02/24/21 02/24/21 01:43 01:48 01:53 Temperature Pulse Rate 88 88 90 Respiratory Rate Blood Pressure Blood Pressure [Right] O2 Sat by Pulse 97 96 96 Oximetry 02/24/21 02/24/21 02/24/21 01:58 02:03 02:07 Temperature Pulse Rate 90 89 89 Respiratory Rate Blood Pressure Blood Pressure [Right] O2 Sat by Pulse 96 95 93 Oximetry 02/24/21 02/24/21 02/24/21 02:13 02:15 02:18 Temperature Pulse Rate 92 H 87 93 H Respiratory 16 Rate Blood Pressure 135/63 Blood Pressure 135/63 [Right] O2 Sat by Pulse 92 94 92 Oximetry 02/24/21 02/24/21 02/24/21 02:23 02:28 02:33 Temperature Pulse Rate 91 H 89 87 Respiratory Rate Blood Pressure Blood Pressure [Right] O2 Sat by Pulse 94 95 95 Oximetry 02/24/21 02/24/21 02/24/21 02:38 02:43 02:48 Temperature Pulse Rate 88 88 94 H Respiratory Rate Blood Pressure Blood Pressure [Right] O2 Sat by Pulse 94 93 95 Oximetry 02/24/21 02/24/21 02/24/21 02:53 02:58 03:03 Temperature Pulse Rate 87 87 92 H Respiratory Rate Blood Pressure Blood Pressure [Right] O2 Sat by Pulse 94 94 98 Oximetry 02/24/21 02/24/21 02/24/21 03:08 03:13 03:15 Temperature 98.2 F Pulse Rate 92 H 93 H 91 H Respiratory 16 Rate Blood Pressure 135/67 Blood Pressure 135/67 [Right] O2 Sat by Pulse 99 99 99 Oximetry 02/24/21 02/24/21 02/24/21 03:18 03:23 03:28 Temperature Pulse Rate 94 H 93 H 91 H Respiratory Rate Blood Pressure Blood Pressure [Right] O2 Sat by Pulse 98 99 99 Oximetry 02/24/21 02/24/21 02/24/21 03:33 03:38 03:43 Temperature Pulse Rate 95 H 96 H 91 H Respiratory Rate Blood Pressure Blood Pressure [Right] O2 Sat by Pulse 100 89 95 Oximetry 02/24/21 02/24/21 02/24/21 03:45 03:48 03:53 Temperature Pulse Rate 92 H 91 H 91 H Respiratory Rate Blood Pressure Blood Pressure [Right] O2 Sat by Pulse 91 96 96 Oximetry 02/24/21 02/24/21 02/24/21 03:58 04:01 04:03 Temperature Pulse Rate 90 95 H Respiratory 16 Rate Blood Pressure Blood Pressure [Right] O2 Sat by Pulse 96 97 Oximetry 02/24/21 02/24/21 02/24/21 04:08 04:13 04:15 Temperature Pulse Rate 87 91 H 86 Respiratory 18 Rate Blood Pressure 136/69 Blood Pressure 136/69 [Right] O2 Sat by Pulse 96 98 95 Oximetry 02/24/21 02/24/21 02/24/21 04:18 04:23 04:28 Temperature Pulse Rate 87 89 94 H Respiratory Rate Blood Pressure Blood Pressure [Right] O2 Sat by Pulse 95 94 94 Oximetry 02/24/21 02/24/21 02/24/21 04:33 04:38 04:43 Temperature Pulse Rate 89 89 93 H Respiratory Rate Blood Pressure Blood Pressure [Right] O2 Sat by Pulse 96 97 95 Oximetry 02/24/21 02/24/21 02/24/21 04:48 04:53 04:58 Temperature Pulse Rate 90 89 91 H Respiratory Rate Blood Pressure Blood Pressure [Right] O2 Sat by Pulse 96 95 95 Oximetry 02/24/21 02/24/21 02/24/21 05:03 05:08 05:13 Temperature Pulse Rate 91 H 90 91 H Respiratory Rate Blood Pressure Blood Pressure [Right] O2 Sat by Pulse 94 93 93 Oximetry 02/24/21 02/24/21 02/24/21 05:15 05:18 05:23 Temperature 98.0 F Pulse Rate 92 H 91 H 94 H Respiratory 16 Rate Blood Pressure 142/66 Blood Pressure 144/62 [Right] O2 Sat by Pulse 97 94 93 Oximetry 02/24/21 02/24/21 02/24/21 05:27 05:33 05:38 Temperature Pulse Rate 90 92 H 92 H Respiratory Rate Blood Pressure Blood Pressure [Right] O2 Sat by Pulse 94 93 93 Oximetry 02/24/21 02/24/21 02/24/21 05:43 05:48 05:53 Temperature Pulse Rate 91 H 95 H 91 H Respiratory Rate Blood Pressure Blood Pressure [Right] O2 Sat by Pulse 93 96 97 Oximetry 02/24/21 02/24/21 02/24/21 05:55 05:58 06:03 Temperature Pulse Rate 93 H 92 H 87 Respiratory Rate Blood Pressure 142/66 Blood Pressure [Right] O2 Sat by Pulse 97 97 Oximetry 02/24/21 02/24/21 02/24/21 06:08 06:13 06:15 Temperature Pulse Rate 87 85 82 Respiratory 18 Rate Blood Pressure 135/65 Blood Pressure 135/65 [Right] O2 Sat by Pulse 97 97 97 Oximetry 02/24/21 02/24/21 02/24/21 06:18 06:23 06:28 Temperature Pulse Rate 85 85 89 Respiratory Rate Blood Pressure Blood Pressure [Right] O2 Sat by Pulse 96 96 96 Oximetry 02/24/21 02/24/21 02/24/21 06:33 06:38 06:43 Temperature Pulse Rate 87 90 87 Respiratory Rate Blood Pressure Blood Pressure [Right] O2 Sat by Pulse 96 95 96 Oximetry 02/24/21 02/24/21 02/24/21 06:48 06:53 06:58 Temperature Pulse Rate 92 H 89 90 Respiratory Rate Blood Pressure Blood Pressure [Right] O2 Sat by Pulse 95 95 96 Oximetry 02/24/21 02/24/21 02/24/21 07:03 07:08 07:13 Temperature Pulse Rate 89 90 90 Respiratory Rate Blood Pressure Blood Pressure [Right] O2 Sat by Pulse 95 96 97 Oximetry 02/24/21 02/24/21 02/24/21 07:15 07:18 07:23 Temperature Pulse Rate 87 89 89 Respiratory Rate Blood Pressure 143/69 Blood Pressure [Right] O2 Sat by Pulse 96 96 Oximetry 02/24/21 02/24/21 02/24/21 07:28 07:33 07:38 Temperature Pulse Rate 89 88 88 Respiratory Rate Blood Pressure Blood Pressure [Right] O2 Sat by Pulse 97 96 97 Oximetry 02/24/21 02/24/21 02/24/21 07:43 07:48 07:53 Temperature Pulse Rate 87 91 H 89 Respiratory Rate Blood Pressure Blood Pressure [Right] O2 Sat by Pulse 96 97 95 Oximetry 02/24/21 02/24/21 02/24/21 07:58 08:03 08:08 Temperature Pulse Rate 91 H 89 91 H Respiratory Rate Blood Pressure Blood Pressure [Right] O2 Sat by Pulse 95 95 94 Oximetry 02/24/21 02/24/21 02/24/21 08:13 08:15 08:18 Temperature Pulse Rate 88 86 87 Respiratory Rate Blood Pressure 135/63 Blood Pressure [Right] O2 Sat by Pulse 94 96 Oximetry 02/24/21 02/24/21 02/24/21 08:23 08:28 08:33 Temperature Pulse Rate 86 87 90 Respiratory Rate Blood Pressure Blood Pressure [Right] O2 Sat by Pulse 96 95 94 Oximetry 02/24/21 02/24/21 02/24/21 08:38 08:43 08:48 Temperature Pulse Rate 90 88 91 H Respiratory Rate Blood Pressure Blood Pressure [Right] O2 Sat by Pulse 96 95 94 Oximetry 02/24/21 02/24/21 02/24/21 08:51 08:52 08:53 Temperature 99.2 F Pulse Rate 92 H 91 H 92 H Respiratory 20 Rate Blood Pressure 137/70 Blood Pressure 137/70 [Right] O2 Sat by Pulse 94 94 Oximetry 02/24/21 02/24/21 02/24/21 08:58 09:03 09:08 Temperature Pulse Rate 89 88 87 Respiratory Rate Blood Pressure Blood Pressure [Right] O2 Sat by Pulse 94 94 94 Oximetry 02/24/21 02/24/21 02/24/21 09:13 09:15 09:18 Temperature Pulse Rate 86 85 88 Respiratory Rate Blood Pressure 139/69 Blood Pressure [Right] O2 Sat by Pulse 94 94 Oximetry 02/24/21 02/24/21 02/24/21 09:23 09:28 09:33 Temperature Pulse Rate 86 87 88 Respiratory Rate Blood Pressure Blood Pressure [Right] O2 Sat by Pulse 95 95 94 Oximetry 02/24/21 02/24/21 02/24/21 09:38 09:43 09:48 Temperature Pulse Rate 88 87 87 Respiratory Rate Blood Pressure Blood Pressure [Right] O2 Sat by Pulse 94 94 95 Oximetry 02/24/21 02/24/21 02/24/21 09:53 09:58 10:03 Temperature Pulse Rate 89 90 90 Respiratory Rate Blood Pressure Blood Pressure [Right] O2 Sat by Pulse 94 95 95 Oximetry 02/24/21 02/24/21 02/24/21 10:08 10:13 10:15 Temperature Pulse Rate 88 88 87 Respiratory Rate Blood Pressure 139/67 Blood Pressure [Right] O2 Sat by Pulse 94 94 Oximetry 02/24/21 02/24/21 02/24/21 10:18 10:23 10:28 Temperature Pulse Rate 90 88 94 H Respiratory Rate Blood Pressure Blood Pressure [Right] O2 Sat by Pulse 94 95 96 Oximetry 02/24/21 02/24/21 02/24/21 10:33 10:38 10:41 Temperature Pulse Rate 91 H 100 H 96 H Respiratory Rate Blood Pressure 133/67 Blood Pressure [Right] O2 Sat by Pulse 95 95 Oximetry 02/24/21 02/24/21 02/24/21 10:43 10:48 10:53 Temperature Pulse Rate 99 H 94 H 93 H Respiratory Rate Blood Pressure Blood Pressure [Right] O2 Sat by Pulse 97 96 97 Oximetry 02/24/21 02/24/21 02/24/21 10:58 11:03 11:08 Temperature Pulse Rate 94 H 93 H 97 H Respiratory Rate Blood Pressure Blood Pressure [Right] O2 Sat by Pulse 96 96 91 Oximetry 02/24/21 02/24/21 02/24/21 11:11 11:13 11:15 Temperature Pulse Rate 87 89 86 Respiratory Rate Blood Pressure 147/76 153/74 Blood Pressure [Right] O2 Sat by Pulse 93 Oximetry 02/24/21 02/24/21 02/24/21 11:18 11:23 11:28 Temperature Pulse Rate 88 87 86 Respiratory Rate Blood Pressure Blood Pressure [Right] O2 Sat by Pulse 93 93 93 Oximetry 02/24/21 02/24/21 02/24/21 11:33 11:38 11:43 Temperature Pulse Rate 88 87 86 Respiratory Rate Blood Pressure Blood Pressure [Right] O2 Sat by Pulse 93 93 93 Oximetry 02/24/21 02/24/21 02/24/21 11:48 11:53 11:58 Temperature Pulse Rate 87 86 87 Respiratory Rate Blood Pressure Blood Pressure [Right] O2 Sat by Pulse 93 92 92 Oximetry 02/24/21 02/24/21 12:01 12:03 Temperature Pulse Rate 89 86 Respiratory Rate Blood Pressure Blood Pressure [Right] O2 Sat by Pulse 91 91 Oximetry - Labs CBC & Chem 7: 02/23/21 14:40 02/23/21 14:40 Labs: Abnormal lab results 02/23/21 02/23/21 02/24/21 Range/Units 14:40 14:40 00:59 RDW 16.2 H (13.2-15.2) % Creatinine 0.4 L (0.6-1.2) mg/dL Magnesium 4.70 H (1.7-2.3) mg/dL Lactate Dehydrogenase 363 H (91-180) units/L 02/24/21 Range/Units 05:54 RDW (13.2-15.2) % Creatinine (0.6-1.2) mg/dL Magnesium 5.10 H (1.7-2.3) mg/dL Lactate Dehydrogenase (91-180) units/L Medications & Allergies - Medications Allergies/Adverse Reactions: Allergies Sulfa (Sulfonamide Antibiotics) Allergy (Severe, Verified 02/19/21 11:38) Swelling Home Medications: Home Medications Medication Instructions Recorded Confirmed Last Taken Type No Known Home Medications [No 02/17/21 02/17/21 Unknown History Reported Home Medications] Active Medications: Generic Name Dose Route Start Last Admin Trade Name Freq PRN Reason Stop Dose Admin Acetaminophen 650 mg 02/23/21 14:45 02/23/21 22:17 Acetaminophen 325 Mg Tab PO 650 mg Q6H PRN Administration Pain, Moderate (4-6) Cyclobenzaprine HCl 10 mg 02/24/21 06:00 02/24/21 08:45 Cyclobenzaprine 10 Mg Tab PO 10 mg TID MIKY Administration Hydralazine HCl 10 mg 02/23/21 14:45 02/23/21 20:56 Hydralazine 20 Mg/1 Ml Inj IV 10 mg Q30MIN PRN Administration Blood Pressure Magnesium Sulfate 40 gm in 1,000 mls @ 50 mls/hr 02/23/21 17:00 02/24/21 11:15 Magnesium Sulfate 40gm/1000ml IV 2 gm/hr DIRECT MIKY 50 mls/hr Administration 2 GM/HR Lactated Ringer's 1,000 mls @ 75 mls/hr 02/23/21 14:50 02/24/21 04:23 Lactated Ringers IV 75 mls/hr DIRECT MIKY Administration Ketorolac Tromethamine 10 mg 02/23/21 19:44 02/24/21 04:01 Ketorolac 10 Mg Tab PO 02/28/21 19:43 10 mg Q4H PRN Administration Pain, Mild (1-3) Ketorolac Tromethamine 30 mg 02/24/21 11:19 02/24/21 11:29 Ketorolac 30 Mg/1 Ml Inj IV 03/01/21 12:00 30 mg ONCE NR Administration Labetalol HCl 100 mg 02/23/21 22:00 02/24/21 05:55 Labetalol 100 Mg Tab PO 100 mg Q8HR MIKY Administration Nicotine 14 mg 02/23/21 22:00 Nicotine 14 Mg/24 Hr Patch TD QDAY MIKY Ondansetron HCl 4 mg 02/23/21 21:06 Ondansetron 4 Mg/2 Ml Inj IV Q8H PRN Nausea And Vomiting Sumatriptan Succinate 50 mg 02/24/21 04:37 Sumatriptan Succinate 50 Mg Tab PO Q4H PRN Headache
[2021-02-24] MEDS: SUMAtriptan SUCCINATE 50 MG TAB PO PRN (12:27)
--- NOTE | 2021-02-24 17:24 | Progress Note ---
Assessment and Plan (1) Hypertension Current Visit: Yes Status: Acute Patient initiated on labetalol and patient to be discharged on oral labetalol 100 mg. (2) Hypertension affecting Current Visit: Yes Status: Acute Qualifiers: Trimester: unspecified trimester Qualified Code(s): O16.9 - Unspecified maternal hypertension, unspecified trimester Plan to address problem: Post vaginal delivery few days back Patient initiated on labetalol and patient to be discharged on oral labetalol 100 mg. Patient also getting IV magnesium sulfate for possible eclampsia (3) Headache Current Visit: Yes Status: Acute Qualifiers: Headache type: tension-type Plan to address problem: Possible tension headache Will manage with Tylenol/IV Toradol No opiates because of the breast-feeding (4) DVT prophylaxis Current Visit: Yes Status: Acute Plan to address problem: On SCDs and GI prophylaxis Subjective Date of service: 02/24/21 Principal diagnosis: Headache, Neck stiffness Interval history: Patient seen and examined. Medical records and medication list reviewed. No acute event overnight noted by the RN. Patient denies any chest pain or difficulty breathing. Patient is tolerating diet. headache improved and BP more stable today Discussed plan of care at bedside with patient. Objective - Exam Narrative Exam: GENERAL: well-developed and well-nourished AAF lying on bed appeared to be in no discomfort. HEENT: Normocephalic. Atraumatic. No conjunctival congestion or icterus. Patient has moist mucous membranes. NECK: Supple. Trachea midline. CHEST/LUNGS: Clear to auscultated bilaterally, breathing nonlabored. No wheezes crackles or rhonchi. HEART/CARDIOVASCULAR: Regular in rate and rhythm. S1 and S2 positive. ABDOMEN: Abdomen is soft, nontender. Patient has normal bowel sounds. SKIN: There is no rash. Warm and dry. NEURO: No focal motor deficit. Follows command. MUSCULOSKELETAL: No joint effusion or tenderness. EXTRIMITY: No edema, no cyanosis or clubbing. PSYCH: Cooperative. - Constitutional Vitals: Vital Signs - 12hr 02/24/21 02/24/21 02/24/21 05:27 05:33 05:38 Temperature Pulse Rate 90 92 H 92 H Respiratory Rate Blood Pressure Blood Pressure [Right] O2 Sat by Pulse 94 93 93 Oximetry 02/24/21 02/24/21 02/24/21 05:43 05:48 05:53 Temperature Pulse Rate 91 H 95 H 91 H Respiratory Rate Blood Pressure Blood Pressure [Right] O2 Sat by Pulse 93 96 97 Oximetry 02/24/21 02/24/21 02/24/21 05:55 05:58 06:03 Temperature Pulse Rate 93 H 92 H 87 Respiratory Rate Blood Pressure 142/66 Blood Pressure [Right] O2 Sat by Pulse 97 97 Oximetry 02/24/21 02/24/21 02/24/21 06:08 06:13 06:15 Temperature Pulse Rate 87 85 82 Respiratory 18 Rate Blood Pressure 135/65 Blood Pressure 135/65 [Right] O2 Sat by Pulse 97 97 97 Oximetry 02/24/21 02/24/21 02/24/21 06:18 06:23 06:28 Temperature Pulse Rate 85 85 89 Respiratory Rate Blood Pressure Blood Pressure [Right] O2 Sat by Pulse 96 96 96 Oximetry 02/24/21 02/24/21 02/24/21 06:33 06:38 06:43 Temperature Pulse Rate 87 90 87 Respiratory Rate Blood Pressure Blood Pressure [Right] O2 Sat by Pulse 96 95 96 Oximetry 02/24/21 02/24/21 02/24/21 06:48 06:53 06:58 Temperature Pulse Rate 92 H 89 90 Respiratory Rate Blood Pressure Blood Pressure [Right] O2 Sat by Pulse 95 95 96 Oximetry 02/24/21 02/24/21 02/24/21 07:03 07:08 07:13 Temperature Pulse Rate 89 90 90 Respiratory Rate Blood Pressure Blood Pressure [Right] O2 Sat by Pulse 95 96 97 Oximetry 02/24/21 02/24/21 02/24/21 07:15 07:18 07:23 Temperature Pulse Rate 87 89 89 Respiratory Rate Blood Pressure 143/69 Blood Pressure [Right] O2 Sat by Pulse 96 96 Oximetry 02/24/21 02/24/21 02/24/21 07:28 07:33 07:38 Temperature Pulse Rate 89 88 88 Respiratory Rate Blood Pressure Blood Pressure [Right] O2 Sat by Pulse 97 96 97 Oximetry 02/24/21 02/24/21 02/24/21 07:43 07:48 07:53 Temperature Pulse Rate 87 91 H 89 Respiratory Rate Blood Pressure Blood Pressure [Right] O2 Sat by Pulse 96 97 95 Oximetry 02/24/21 02/24/21 02/24/21 07:58 08:03 08:08 Temperature Pulse Rate 91 H 89 91 H Respiratory Rate Blood Pressure Blood Pressure [Right] O2 Sat by Pulse 95 95 94 Oximetry 02/24/21 02/24/21 02/24/21 08:13 08:15 08:18 Temperature Pulse Rate 88 86 87 Respiratory Rate Blood Pressure 135/63 Blood Pressure [Right] O2 Sat by Pulse 94 96 Oximetry 02/24/21 02/24/21 02/24/21 08:23 08:28 08:33 Temperature Pulse Rate 86 87 90 Respiratory Rate Blood Pressure Blood Pressure [Right] O2 Sat by Pulse 96 95 94 Oximetry 02/24/21 02/24/21 02/24/21 08:38 08:43 08:48 Temperature Pulse Rate 90 88 91 H Respiratory Rate Blood Pressure Blood Pressure [Right] O2 Sat by Pulse 96 95 94 Oximetry 02/24/21 02/24/21 02/24/21 08:51 08:52 08:53 Temperature 99.2 F Pulse Rate 92 H 91 H 92 H Respiratory 20 Rate Blood Pressure 137/70 Blood Pressure 137/70 [Right] O2 Sat by Pulse 94 94 Oximetry 02/24/21 02/24/21 02/24/21 08:58 09:03 09:08 Temperature Pulse Rate 89 88 87 Respiratory Rate Blood Pressure Blood Pressure [Right] O2 Sat by Pulse 94 94 94 Oximetry 02/24/21 02/24/21 02/24/21 09:13 09:15 09:18 Temperature Pulse Rate 86 85 88 Respiratory Rate Blood Pressure 139/69 Blood Pressure [Right] O2 Sat by Pulse 94 94 Oximetry 02/24/21 02/24/21 02/24/21 09:23 09:28 09:33 Temperature Pulse Rate 86 87 88 Respiratory Rate Blood Pressure Blood Pressure [Right] O2 Sat by Pulse 95 95 94 Oximetry 02/24/21 02/24/21 02/24/21 09:38 09:43 09:48 Temperature Pulse Rate 88 87 87 Respiratory Rate Blood Pressure Blood Pressure [Right] O2 Sat by Pulse 94 94 95 Oximetry 02/24/21 02/24/21 02/24/21 09:53 09:58 10:03 Temperature Pulse Rate 89 90 90 Respiratory Rate Blood Pressure Blood Pressure [Right] O2 Sat by Pulse 94 95 95 Oximetry 02/24/21 02/24/21 02/24/21 10:08 10:13 10:15 Temperature Pulse Rate 88 88 87 Respiratory Rate Blood Pressure 139/67 Blood Pressure [Right] O2 Sat by Pulse 94 94 Oximetry 02/24/21 02/24/21 02/24/21 10:18 10:23 10:28 Temperature Pulse Rate 90 88 94 H Respiratory Rate Blood Pressure Blood Pressure [Right] O2 Sat by Pulse 94 95 96 Oximetry 02/24/21 02/24/21 02/24/21 10:33 10:38 10:41 Temperature Pulse Rate 91 H 100 H 96 H Respiratory Rate Blood Pressure 133/67 Blood Pressure [Right] O2 Sat by Pulse 95 95 Oximetry 02/24/21 02/24/21 02/24/21 10:43 10:48 10:53 Temperature Pulse Rate 99 H 94 H 93 H Respiratory Rate Blood Pressure Blood Pressure [Right] O2 Sat by Pulse 97 96 97 Oximetry 02/24/21 02/24/21 02/24/21 10:58 11:03 11:08 Temperature Pulse Rate 94 H 93 H 97 H Respiratory Rate Blood Pressure Blood Pressure [Right] O2 Sat by Pulse 96 96 91 Oximetry 02/24/21 02/24/21 02/24/21 11:11 11:13 11:15 Temperature Pulse Rate 87 89 86 Respiratory Rate Blood Pressure 147/76 153/74 Blood Pressure [Right] O2 Sat by Pulse 93 Oximetry 02/24/21 02/24/21 02/24/21 11:18 11:23 11:28 Temperature Pulse Rate 88 87 86 Respiratory Rate Blood Pressure Blood Pressure [Right] O2 Sat by Pulse 93 93 93 Oximetry 02/24/21 02/24/21 02/24/21 11:33 11:38 11:43 Temperature Pulse Rate 88 87 86 Respiratory Rate Blood Pressure Blood Pressure [Right] O2 Sat by Pulse 93 93 93 Oximetry 02/24/21 02/24/21 02/24/21 11:48 11:53 11:58 Temperature Pulse Rate 87 86 87 Respiratory Rate Blood Pressure Blood Pressure [Right] O2 Sat by Pulse 93 92 92 Oximetry 02/24/21 02/24/21 02/24/21 12:01 12:03 12:07 Temperature Pulse Rate 89 86 88 Respiratory Rate Blood Pressure Blood Pressure [Right] O2 Sat by Pulse 91 91 91 Oximetry 02/24/21 02/24/21 02/24/21 12:08 12:12 12:13 Temperature Pulse Rate 90 87 89 Respiratory Rate Blood Pressure Blood Pressure [Right] O2 Sat by Pulse 93 91 93 Oximetry 02/24/21 02/24/21 02/24/21 12:15 12:18 12:23 Temperature Pulse Rate 86 84 78 Respiratory Rate Blood Pressure 137/70 Blood Pressure [Right] O2 Sat by Pulse 92 93 Oximetry 02/24/21 02/24/21 02/24/21 12:28 12:33 12:37 Temperature Pulse Rate 25 L 77 80 Respiratory Rate Blood Pressure Blood Pressure [Right] O2 Sat by Pulse 89 91 91 Oximetry 02/24/21 02/24/21 02/24/21 12:38 12:43 12:47 Temperature Pulse Rate 77 77 76 Respiratory Rate Blood Pressure Blood Pressure [Right] O2 Sat by Pulse 92 91 91 Oximetry 02/24/21 02/24/21 02/24/21 12:48 12:53 12:58 Temperature Pulse Rate 76 75 75 Respiratory Rate Blood Pressure Blood Pressure [Right] O2 Sat by Pulse 91 91 91 Oximetry 02/24/21 02/24/21 02/24/21 13:03 13:04 13:08 Temperature Pulse Rate 75 73 76 Respiratory Rate Blood Pressure Blood Pressure [Right] O2 Sat by Pulse 91 91 92 Oximetry 02/24/21 02/24/21 02/24/21 13:09 13:13 13:14 Temperature Pulse Rate 78 74 77 Respiratory Rate Blood Pressure Blood Pressure [Right] O2 Sat by Pulse 91 92 91 Oximetry 02/24/21 02/24/21 02/24/21 13:15 13:18 13:23 Temperature Pulse Rate 76 79 77 Respiratory Rate Blood Pressure 144/84 Blood Pressure [Right] O2 Sat by Pulse 90 94 Oximetry 02/24/21 02/24/21 02/24/21 13:28 13:33 13:38 Temperature Pulse Rate 82 78 89 Respiratory Rate Blood Pressure Blood Pressure [Right] O2 Sat by Pulse 93 94 89 Oximetry 02/24/21 02/24/21 02/24/21 13:43 13:48 13:53 Temperature Pulse Rate 83 82 84 Respiratory Rate Blood Pressure Blood Pressure [Right] O2 Sat by Pulse 88 88 89 Oximetry 02/24/21 02/24/21 02/24/21 13:58 14:03 14:08 Temperature Pulse Rate 85 85 85 Respiratory Rate Blood Pressure Blood Pressure [Right] O2 Sat by Pulse 89 90 88 Oximetry 02/24/21 02/24/21 02/24/21 14:11 14:13 14:15 Temperature Pulse Rate 79 80 75 Respiratory Rate Blood Pressure 136/64 Blood Pressure [Right] O2 Sat by Pulse 91 91 Oximetry 02/24/21 02/24/21 02/24/21 14:18 14:23 14:27 Temperature Pulse Rate 79 80 78 Respiratory Rate Blood Pressure 135/63 Blood Pressure [Right] O2 Sat by Pulse 91 91 Oximetry 02/24/21 02/24/21 02/24/21 14:28 14:29 14:33 Temperature Pulse Rate 78 78 Respiratory Rate Blood Pressure Blood Pressure [Right] O2 Sat by Pulse 90 80 L 95 Oximetry 02/24/21 02/24/21 02/24/21 14:38 14:43 14:48 Temperature Pulse Rate 78 74 81 Respiratory Rate Blood Pressure Blood Pressure [Right] O2 Sat by Pulse 95 96 96 Oximetry 02/24/21 02/24/21 02/24/21 14:53 14:54 14:58 Temperature Pulse Rate 84 86 84 Respiratory Rate Blood Pressure Blood Pressure [Right] O2 Sat by Pulse 97 86 89 Oximetry 02/24/21 02/24/21 02/24/21 14:59 15:03 15:04 Temperature Pulse Rate 83 83 82 Respiratory Rate Blood Pressure 133/63 Blood Pressure [Right] O2 Sat by Pulse 91 95 Oximetry 02/24/21 02/24/21 02/24/21 15:08 15:13 15:15 Temperature Pulse Rate 80 78 80 Respiratory Rate Blood Pressure 156/71 Blood Pressure [Right] O2 Sat by Pulse 96 95 Oximetry 02/24/21 02/24/21 02/24/21 15:18 15:23 15:28 Temperature Pulse Rate 79 82 81 Respiratory Rate Blood Pressure Blood Pressure [Right] O2 Sat by Pulse 96 95 95 Oximetry 02/24/21 02/24/21 02/24/21 15:33 15:38 15:43 Temperature Pulse Rate 81 78 86 Respiratory Rate Blood Pressure Blood Pressure [Right] O2 Sat by Pulse 95 97 90 Oximetry 02/24/21 02/24/21 02/24/21 15:48 15:49 15:50 Temperature Pulse Rate 72 84 85 Respiratory Rate Blood Pressure 155/72 Blood Pressure [Right] O2 Sat by Pulse 77 L 96 Oximetry 02/24/21 02/24/21 02/24/21 15:54 16:00 16:01 Temperature Pulse Rate 78 78 Respiratory Rate Blood Pressure Blood Pressure [Right] O2 Sat by Pulse 91 51 L 88 Oximetry 02/24/21 02/24/21 02/24/21 16:05 16:06 16:11 Temperature Pulse Rate 75 74 81 Respiratory Rate Blood Pressure Blood Pressure [Right] O2 Sat by Pulse 82 L 78 L 86 Oximetry 02/24/21 02/24/21 02/24/21 16:15 16:16 16:21 Temperature Pulse Rate 71 79 77 Respiratory Rate Blood Pressure 144/83 Blood Pressure [Right] O2 Sat by Pulse 81 L 82 L Oximetry 02/24/21 02/24/21 02/24/21 16:26 16:30 16:31 Temperature Pulse Rate 79 71 76 Respiratory Rate Blood Pressure Blood Pressure [Right] O2 Sat by Pulse 80 L 84 93 Oximetry 02/24/21 02/24/21 02/24/21 16:35 16:36 16:41 Temperature 99.4 F Pulse Rate 76 76 76 Respiratory 20 Rate Blood Pressure 158/74 Blood Pressure 158/74 [Right] O2 Sat by Pulse 0 L 0 L 0 L Oximetry 02/24/21 02/24/21 16:42 16:46 Temperature Pulse Rate 77 79 Respiratory Rate Blood Pressure Blood Pressure [Right] O2 Sat by Pulse 0 L 91 Oximetry - Labs CBC & Chem 7: 02/23/21 14:40 02/23/21 14:40 Labs: Abnormal lab results 02/24/21 02/24/21 02/24/21 Range/Units 00:59 05:54 13:19 Magnesium 4.70 H 5.10 H 5.60 H (1.7-2.3) mg/dL
[2021-02-25] MEDS: SUMAtriptan SUCCINATE 50 MG TAB PO PRN ×2 (01:06→05:05)
[2021-02-25] MEDS: KETOROLAC 10 MG TAB PO PRN ×3 (03:06→11:03)
[2021-02-25] MEDS: CYCLOBENZAPRINE 10 MG TAB PO SCH ×3 (09:00→19:48)
--- NOTE | 2021-02-25 14:28 | Progress Note ---
Assessment and Plan - Patient Problems (1) Headache Current Visit: Yes Status: Acute Qualifiers: Headache type: tension-type Plan to address problem: 1) Percocet added to her regimen to see if it helps 2) Anesthesia will see her again in case the amount given in her blood patch yesterday wasn't sufficient and another dose is needed. 3) appreciated Medicine following her to r/o other causes and helping with her treatment. Subjective - Subjective Date of service: 02/25/21 (PPD 8) Principal diagnosis: Headache, Neck stiffness Interval history: PT had a blood patch yesterday for her headache. Patient notes it only helped for a very short period of time and then the headache returned immediately. Patient notes that this headache is still persistent along with neck stiffness. No fever. Patient notes current headache meds are not helping. Her magnesium treatment is finished and is now off. Objective - Vital Signs Latest vital signs: Vital Signs Temp Pulse Resp BP BP Pulse Ox 02/25/21 09:25 98.6 F 65 18 134/60 97 02/25/21 06:54 141/74 02/25/21 05:57 98.8 F 62 18 149/83 98 02/25/21 02:30 98.9 F 71 18 141/71 97 02/24/21 22:04 136/69 02/24/21 21:10 98.5 F 71 18 127/72 98 02/24/21 17:06 78 154/80 97 02/24/21 16:46 79 91 02/24/21 16:42 77 0 L 02/24/21 16:41 99.4 F 76 20 158/74 158/74 0 L 02/24/21 16:36 76 0 L 02/24/21 16:35 76 0 L 02/24/21 16:31 76 93 02/24/21 16:30 71 84 02/24/21 16:26 79 80 L 02/24/21 16:21 77 82 L 02/24/21 16:16 79 81 L 02/24/21 16:15 71 144/83 02/24/21 16:11 81 86 02/24/21 16:06 74 78 L 02/24/21 16:05 75 82 L 02/24/21 16:01 78 88 02/24/21 16:00 51 L 02/24/21 15:54 78 91 02/24/21 15:50 85 155/72 02/24/21 15:49 84 96 02/24/21 15:48 72 77 L 02/24/21 15:43 86 90 02/24/21 15:38 78 97 02/24/21 15:33 81 95 02/24/21 15:28 81 95 02/24/21 15:23 82 95 02/24/21 15:18 79 96 02/24/21 15:15 80 156/71 02/24/21 15:13 78 95 02/24/21 15:08 80 96 02/24/21 15:04 82 133/63 02/24/21 15:03 83 95 02/24/21 14:59 83 91 02/24/21 14:58 84 89 02/24/21 14:54 86 86 02/24/21 14:53 84 97 02/24/21 14:48 81 96 02/24/21 14:43 74 96 02/24/21 14:38 78 95 02/24/21 14:33 78 95 02/24/21 14:29 80 L 02/24/21 14:28 78 90 02/24/21 14:27 78 135/63 Intake and Output 02/24/21 02/25/21 02/25/21 23:59 07:59 15:59 Intake Total 320 420 Balance 320 420 Intake: Oral 320 240 Intake, Free Water 180 Other: Total, Intake Amount 320 240 # Voids Void 1 - Exam Narrative Exam: In general, patient appears very uncomfortable lying in the bed. - Labs Labs: Abnormal lab results 02/24/21 Range/Units 13:19 Magnesium 5.60 H (1.7-2.3) mg/dL
--- NOTE | 2021-02-25 14:31 | Progress Note ---
Assessment and Plan (1) Hypertension Current Visit: Yes Status: Acute Patient initiated on labetalol and patient to be discharged on oral labetalol 100 mg. (2) Hypertension affecting Current Visit: Yes Status: Acute Qualifiers: Trimester: unspecified trimester Qualified Code(s): O16.9 - Unspecified maternal hypertension, unspecified trimester Plan to address problem: Post vaginal delivery few days back Patient initiated on labetalol and patient to be discharged on oral labetalol 100 mg. Patient also getting IV magnesium sulfate for possible eclampsia (3) Headache Current Visit: Yes Status: Acute Qualifiers: Headache type: tension-type Plan to address problem: Possible tension headache on Tylenol/IV Toradol No opiates because of the breast-feeding will order CT head/neck for her persistent complaint (4) DVT prophylaxis Current Visit: Yes Status: Acute Plan to address problem: On SCDs and GI prophylaxis --Patient c/o more headache today, will order CT head/neck. if result is normal she can be discharge home with outpt f/u Subjective Date of service: 02/25/21 Principal diagnosis: Headache, Neck stiffness Interval history: Patient seen and examined. Medical records and medication list reviewed. No acute event overnight noted by the RN. Patient continue to c/o headache today eventhough she was sleeping very peacefully in her room Discussed plan of care at bedside with patient and also with RN. Objective - Exam Narrative Exam: GENERAL: well-developed and well-nourished AAF lying on bed appeared to be in no discomfort. HEENT: Normocephalic. Atraumatic. No conjunctival congestion or icterus. Patient has moist mucous membranes. NECK: Supple. Trachea midline. CHEST/LUNGS: Clear to auscultated bilaterally, breathing nonlabored. No wheezes crackles or rhonchi. HEART/CARDIOVASCULAR: Regular in rate and rhythm. S1 and S2 positive. ABDOMEN: Abdomen is soft, nontender. Patient has normal bowel sounds. SKIN: There is no rash. Warm and dry. NEURO: No focal motor deficit. Follows command. drowsy MUSCULOSKELETAL: No joint effusion or tenderness. EXTRIMITY: No edema, no cyanosis or clubbing. PSYCH: Cooperative. - Constitutional Vitals: Vital Signs - 12hr 02/25/21 02/25/21 02/25/21 05:57 06:54 09:25 Temperature 98.8 F 98.6 F Pulse Rate 62 65 Respiratory 18 18 Rate Blood Pressure 149/83 141/74 Blood Pressure 134/60 [Right] O2 Sat by Pulse 98 97 Oximetry - Labs CBC & Chem 7: 02/23/21 14:40 02/23/21 14:40 Labs: Abnormal lab results 02/24/21 Range/Units 13:19 Magnesium 5.60 H (1.7-2.3) mg/dL
[2021-02-25] MEDS: oxyCODONE /ACETAMINOPHEN 5-325MG TAB PO PRN ×2 (14:40→21:36)
[2021-02-25] MEDS ORDERED: NEOSTIGMINE IV SCH (15:00)
[2021-02-25] MEDS ORDERED: SODIUM CHLORIDE 0.9% IV SCH (15:00)
[2021-02-25] MEDS ORDERED: ATROPINE IV SCH (15:00)
--- NOTE | 2021-02-25 17:53 | Progress Note ---
Subjective Date of service: 02/25/21 Principal diagnosis: Headache, Neck stiffness Interval history: Patient seen again regarding her FENG. She stated that the blood patch from yesterday provided very minimal relief. Her symptoms are still mostly consistent with a PDPH, so a second blood patch was offered to her which she declined. As an alternative she was given the option to receive IV neostigmine and atropine as a treatment for her FENG, which she agreed with. I will check on her again tomorrow to see if she has had any improvement. Objective - Constitutional Vitals: Vital Signs - 12hr 02/25/21 02/25/21 02/25/21 05:57 06:54 09:25 Temperature 98.8 F 98.6 F Pulse Rate 62 65 Respiratory 18 18 Rate Blood Pressure 149/83 141/74 Blood Pressure 134/60 [Right] O2 Sat by Pulse 98 97 Oximetry - Labs CBC & Chem 7: 02/23/21 14:40 02/23/21 14:40
--- NOTE | 2021-02-25 18:28 | Cat Scan Report ---
CT head/brain wo con INDICATION / CLINICAL INFORMATION: 35 years Female; headache. TECHNIQUE: Routine CT head without contrast. All CT scans at this location are performed using CT dos e reduction for ALARA by means of automated exposure control. COMPARISON: None. FINDINGS: BRAIN / INTRACRANIAL CONTENTS: Hemorrhage seen in the fourth ventricle. A minimal component of hydroc ephalus cannot be excluded, as the temporal horns the lateral ventricles are slightly increased in si ze. There may be a very small, subtle amount of subarachnoid hemorrhage along the sulci of the store host ior left frontal lobe, superiorly. Some component of blood products may be present in the prepontine and premedullary cisterns. This finding is best seen on sagittal reconstructions. There may be a very small meningioma along the falx cerebri, adjacent to the left paracentral lobule, measuring 3 mm in maximum dimension. Otherwise, no acute hemorrhage, mass effect, midline shift, hydrocephalus, or acute, large territori al infarct. No signs of significant atrophy or chronic infarct. No significant white matter abnormali ty seen. CRANIOCERVICAL JUNCTION: No significant abnormality. 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 SINUSES / MASTOIDS: Mild mucosal thickening seen in the ethmoids. ADDITIONAL FINDINGS: None. IMPRESSION: 1. Blood products seen in the fourth ventricle and other subarachnoid locations, as described above. Developing hydrocephalus cannot be excluded. Close follow-up is recommended. 2. Otherwise, no focal intra-axial mass or large infarct appreciated. CRITICAL RESULT: Exam Completed (ADJUSTER PIANO ACTION/CDT): 02/25/2021 5:09 PM Exam Reviewed (ADJUSTER PIANO ACTION/CDT): 5:15 p.m. Time of Communication (ADJUSTER PIANO ACTION/CDT): 5:20 PM Licensed Practitioner Receiving Report: Ilene Norris, the patient's nurse Signer Name: Alejo Wheat MD, III Signed: 02/25/2021 6:24 PM Workstation Name: [id number]
--- NOTE | 2021-02-25 18:39 | Cat Scan Report ---
CT neck wo con INDICATION / CLINICAL INFORMATION: 35 years Female; headache. TECHNIQUE: Contiguous thin cut axial images obtained through the neck. Sagittal and coronal reconstructions perf ormed by the technologist. All CT scans at this location are performed using CT dose reduction for AL DIVINA by means of automated exposure control. COMPARISON: None available. FINDINGS: Subarachnoid blood products versus dural based lesion seen at the craniocervical junction a nteriorly along the clivus. As noted on CT of the head, there are some component of blood products in the fourth ventricle. Pre and postcontrast MRI of the cervical spine may be of benefit. MUCOSAL SPACE: Blackwell and lingual tonsillar tissue is mildly prominent, which may be reactive, give n the patient's age. Otherwise, the nasopharynx, oropharynx and vallecula, oral cavity and floor of m outh, hypopharynx, and larynx are grossly normal. LYMPH NODES: No significant adenopathy appreciated, although multiple, presumed reactive nodes are se en. SALIVARY GLANDS: Parotid, submandibular, and visualized sublingual glands are within normal limits. T here is no evidence of sialolith. THYROID GLAND: Unremarkable. PARANASAL SINUSES: Dehiscence of lamina papyracea noted. Mild to moderate mucosal thickening seen in the ethmoids. SPINE: No significant abnormality of the cervical spine appreciated. VASCULAR STRUCTURES: Vascular structures are grossly normal in appearance. ADDITIONAL FINDINGS: Surrounding soft tissues are otherwise grossly normal. IMPRESSION: 1. Blood products or dural based lesion/thickening identified, as described above. Pre and postcontra st MRI of the brain and cervical spine may be of benefit. MRA of the head may be of benefit as well. Signer Name: Alejo Wheat MD, III Signed: 02/25/2021 6:35 PM Workstation Name: [id number]
[2021-02-25] MEDS: ONDANSETRON 4 MG/2 ML INJ IV PRN (21:41)
--- NOTE | 2021-02-25 23:35 | Cat Scan Report ---
CT angio head INDICATION / CLINICAL INFORMATION: 35 years Female; MAIN. TECHNIQUE: Thin cut axial images obtained through the head during IV bolus contrast administration. S agittal, coronal, and 3 plane MIP reconstructions performed by the technologist. NASCET type criteria used evaluate stenoses. Automated exposure control utilized for radiation reduction purposes. COMPARISON: None available. FINDINGS: INTERNAL CAROTID ARTERIES: No significant narrowing appreciated. VERTEBROBASILAR SYSTEM: No significant narrowing appreciated. DISTAL BRANCHES: Distal branches of the anterior, middle, and posterior cerebral arteries are fairly symmetric in appearance and number. ANEURYSM: None identified. ADDITIONAL FINDINGS: Remainder of the surrounding soft tissues are grossly normal. IMPRESSION: No significant abnormality on this CTA of the head. Signer Name: Alejo Wheat MD, III Signed: 02/25/2021 11:30 PM Workstation Name: [id number]
--- NOTE | 2021-02-25 23:36 | Event Note ---
Date: 02/25/21 CT report was called to me around [address] and neck CT consistent with subarachnoid hemorrhage final impression was blood products or dural based lesion\thickening identified. Consistent with subarachnoid hemorrhage. Fourth ventricular bleed present. Discussed with Dr. Kenton Lassiter neurosurgeon on staff. Ordered a CT angiogram of the neck and head to rule out aneurysm. In In the meantime patient to be transferred to ICU for closer observation. Patient stable. Talking and alert and oriented. Complains of severe headache. Otherwise no focal deficits. Will refer to Dr. Kenton Lassiter regarding aneurysm repair transfer depending on the CT angiogram of the head and neck. Signed out to Dr. Medley at 11:30 PM. Check CTA Head and Neck
--- NOTE | 2021-02-25 23:38 | Cat Scan Report ---
CT angio neck INDICATION / CLINICAL INFORMATION: 35 years Female; MAIN. TECHNIQUE: Thin cut axial images obtained through the head during IV bolus contrast administration. S agittal, coronal, and 3 plane MIP reconstructions performed by the technologist. NASCET type criteria used evaluate stenoses. All CT scans at this location are performed using CT dose reduction for ALAR A by means of automated exposure control. COMPARISON: None available. FINDINGS: ARCH: Bovine arch configuration noted. CAROTID ARTERIES: The visualized common and internal carotid arteries are widely patent. VERTEBRAL ARTERIES: Slight left dominant vertebral system seen. No significant stenosis appreciated. ADDITIONAL FINDINGS: Remainder of the surrounding soft tissues are grossly normal. There is a focal dehiscence of the lamina papyracea on the left Conor of no clinical significance. Mild to moderate mucosal thickening in the ethmoids. IMPRESSION: No significant stenosis appreciated on this CTA of the neck. Signer Name: Alejo Wheat MD, III Signed: 02/25/2021 11:33 PM Workstation Name: [email or web address] [id number]
[2021-02-25] MEDS: KETOROLAC 30 MG/1 ML INJ IV NR (23:40)
[2021-02-26] MEDS: SUMAtriptan SUCCINATE 50 MG TAB PO PRN (04:29)
[2021-02-26] MEDS: LACTATED RINGERS 1,000 ML IV SCH (04:33)
[2021-02-26] MEDS ORDERED: MORPHINE 2 MG/1 ML INJ IV ONE (06:08)
[2021-02-26] MEDS: ONDANSETRON 4 MG/2 ML INJ IV PRN ×3 (06:19→19:23)
[2021-02-26] MEDS: NICOTINE 14 MG/24 HR PATCH TD SCH ×5 (08:26→12:08)
[2021-02-26] MEDS: CYCLOBENZAPRINE 10 MG TAB PO SCH ×4 (08:27→19:24)
[2021-02-26] MEDS: hydrALAZINE 20 MG/1 ML INJ IV PRN ×2 (08:28→18:27)
[2021-02-26] MEDS ORDERED: FUROSEMIDE 40 MG/4 ML INJ IV ONE (08:59)
[2021-02-26] MEDS ORDERED: MORPHINE 2 MG/1 ML INJ IM SCH (09:30)
[2021-02-26] MEDS ORDERED: FUROSEMIDE 20 MG/2 ML INJ IV SCH (10:00)
--- NOTE | 2021-02-26 10:00 | Progress Note ---
Subjective - Subjective Date of service: 02/26/21 Principal diagnosis: Headache, Neck stiffness Interval history: defer to CCU management plan of care: stable, continue pain meds prn awaiting transfer second to CVA necessitating neurosurgical intervention FUP as outpatient when stable Chad Wing MD Objective - Vital Signs Latest vital signs: Vital Signs Temp Pulse Resp BP BP Pulse Ox 02/26/21 08:40 71 30 H 167/101 95 02/26/21 08:30 65 17 167/101 95 02/26/21 08:28 164/101 02/26/21 08:20 63 15 167/101 97 02/26/21 08:10 64 17 167/101 97 02/26/21 08:00 72 18 167/101 96 02/26/21 07:50 69 15 170/85 95 02/26/21 07:40 65 20 170/85 98 02/26/21 07:34 98.9 F 02/26/21 07:30 70 16 170/85 97 02/26/21 07:20 63 17 166/82 95 02/26/21 07:10 59 L 17 95 02/26/21 07:00 62 17 161/75 95 02/26/21 06:50 63 19 144/121 94 02/26/21 06:41 58 L 13 144/121 94 02/26/21 06:31 57 L 13 144/121 95 02/26/21 06:21 57 L 16 144/121 94 02/26/21 06:11 59 L 15 144/121 97 02/26/21 06:00 63 16 139/67 96 02/26/21 05:51 57 L 22 139/67 96 02/26/21 05:41 56 L 17 139/67 95 02/26/21 05:31 55 L 14 139/67 96 02/26/21 05:21 65 13 139/67 94 02/26/21 05:11 56 L 19 139/67 94 02/26/21 05:00 54 L 15 139/67 97 02/26/21 04:51 59 L 19 130/63 95 02/26/21 04:41 57 L 18 130/63 96 02/26/21 04:31 60 20 130/63 95 02/26/21 04:21 63 21 130/63 95 02/26/21 04:11 60 15 130/63 95 02/26/21 04:01 59 L 02/26/21 04:00 59 L 19 130/63 96 02/26/21 03:51 63 17 156/75 96 02/26/21 03:41 58 L 19 156/75 95 02/26/21 03:31 61 18 156/75 96 02/26/21 03:21 81 15 156/75 96 02/26/21 03:19 99.4 F 02/26/21 03:11 61 13 156/75 95 02/26/21 03:01 59 L 16 156/75 96 02/26/21 02:50 63 15 156/75 98 02/26/21 02:40 60 16 156/75 95 02/26/21 02:31 53 L 15 156/75 96 02/26/21 02:21 72 13 156/75 96 02/26/21 02:11 58 L 15 156/75 96 02/26/21 02:01 59 L 15 156/75 96 02/26/21 01:51 79 21 128/60 91 02/26/21 01:41 66 21 128/60 89 02/26/21 01:31 63 21 128/60 90 02/26/21 01:21 61 20 128/60 91 02/26/21 01:11 61 20 128/60 91 02/26/21 01:01 58 L 20 128/60 90 02/26/21 00:51 58 L 19 134/62 91 02/26/21 00:41 56 L 19 134/62 93 02/26/21 00:31 56 L 16 134/62 95 02/26/21 00:21 57 L 17 134/62 94 02/26/21 00:11 57 L 17 134/62 95 02/26/21 00:01 94 02/26/21 00:00 55 L 13 134/62 94 02/25/21 23:51 60 16 148/75 93 02/25/21 23:48 99.1 F 02/25/21 23:41 65 13 96 02/25/21 23:31 65 13 94 02/25/21 23:21 65 15 93 02/25/21 23:11 62 10 L 96 02/25/21 23:08 57 L 02/25/21 21:51 60 131/60 02/25/21 19:31 98.3 F 61 16 149/58 94 02/25/21 16:10 98.4 F 60 18 129/67 97 Intake and Output 02/25/21 02/26/21 02/26/21 23:59 07:59 15:59 Output Total 600 Balance -600 Output: Urine 600 Void 600 Other: Total, Output Amount 600 Voiding Method Bedpan Weight 91 kg Patient Weight 02/26/21 23:59 Weight 91 kg
[2021-02-26 11:07] LABS: Hematocrit 36.1 % (30.3-42.9); Hemoglobin 12.2 gm/dl (10.1-14.3); Mean Corpuscular HGB Conc 34 % (30-34); Mean Corpuscular Volume 85 fl (79-97); Platelet Count 282 K/mm3 (140-440); Red Blood Count 4.27 M/mm3 (3.65-5.03); Red Cell Distribution Width 16.3 % (13.2-15.2)
[2021-02-26 11:14] LABS: Blood Urea Nitrogen 8 mg/dL (7-17); Calcium 8.5 mg/dL (8.4-10.2); Hemolysis Index 36
--- NOTE | 2021-02-26 11:16 | Magnetic Resonance Report ---
MR brain wo/w con INDICATION / CLINICAL INFORMATION: 35 years Female; SAH. TECHNIQUE: Multiplanar, multisequence MR images of the brain were obtained. COMPARISON: The study is compared with the earlier CT of 02/25/2021. FINDINGS: BRAIN / INTRACRANIAL CONTENTS: The findings correlate with the CT demonstrating focus of acute hemorr nisa within the fourth ventricle as well as extending along the prepontine and premedullary cisterns. There is also component of subarachnoid hemorrhage extending along the cerebral sulci, particularly the posterior parietal and occipital regions of bilaterally. There again appears to be slight prominence of the temporal horns of the lateral ventricles which is unchanged and earlier CT. There is mild hyperintensity involving the paravertebral regions on the FLA IR sequences, particularly the posterior margins and continued follow-up would be recommended to excl ude developing hydrocephalus. No definitive intracranial enhancing lesions are appreciated. The diffusion imaging reveals no eviden ce of acute infarction. CRANIOCERVICAL JUNCTION: No significant abnormality. VASCULAR FLOW-VOIDS: The vascular structures including the visualized dural sinuses appear to demonst rate appropriate signal voids and enhancement. ORBITS: There is a focal defect involving medial left orbital wall which appears to be developmental or related to previous trauma. SINUSES / MASTOIDS: There is minimal inflammatory changes along the inferior maxillary sinuses. ADDITIONAL FINDINGS: None. IMPRESSION: 1. There is scattered subarachnoid hemorrhage along the prepontine/premedullary cistern, fourth ventr icle and cerebral convexities bilaterally as detailed above which correlates with the earlier CT. 2. There is continued slight prominence of the temporal horns with mild periventricular hyperintensit y as described and continued follow-up would be recommended to exclude developing hydrocephalus. 3. No definitive intracranial enhancing lesions are appreciated. Signer Name: Amanuel Hannah MD Signed: 02/26/2021 11:12 AM Workstation Name: [id number]
[2021-02-26 11:19] LABS: BUN/Creatinine Ratio 20
[2021-02-26] MEDS: oxyCODONE /ACETAMINOPHEN 5-325MG TAB PO PRN ×2 (12:07→19:40)
--- NOTE | 2021-02-26 12:24 | Event Note ---
Date: 02/26/21 Patient transferred to ICU sometime last evening for possible subarachnoid hemorrhage. Admitted several days ago with what appears to be pre-eclampsia. Baby delivered and BP has been volatile. Headaches were on admission but have been persistent since and have not resolved despite delievery and improvement in BP. Persistent nausea and vomiting. Patient smokes as well. Neurologically intact. Awaiting Neurosurgery evaluation and MRI to determine further care. BP control and q1 hour neuro checks while in ICU.
--- NOTE | 2021-02-26 15:01 | Discharge Summary ---
<JASON GUSMAN - Last Filed: 02/26/21 15:13> Providers - Providers Date of Admission: 02/23/21 13:56 Date of discharge: 02/26/21 Attending physician: BRYSON WHITTINGTON JR, MD 02/23/21 16:33 Consult to Anesthesiology [CONS] Routine Consulting Provider: MARY FABIAN Reason For Exam: Pt c/o headache and neck pain. Had a with epi 02/23/21 16:49 Consult to Physician [CONS] Routine Comment: Consulting Provider: KEITH VASQUEZ Physician Instructions: PLEASE EVALUATE AND TREAT Reason For Exam: worsening FENG, neck pain, LUQ abd pain 02/25/21 22:02 Consult to Physician [CONS] Routine Comment: Consulting Provider: SARAH AGUILERA II Physician Instructions: Reason For Exam: SAH 02/25/21 23:37 Consult to Physician [CONS] Routine Comment: Consulting Provider: SONNY ELIZONDO Physician Instructions: Reason For Exam: SAH Primary care physician: DONOVAN STRINGER Hospitalization Hospital course: This is a 35-year-old female G8, P7 with migraines, history of post dural puncture headache treated with blood patch and current tobacco abuse and surgical history of cholecystectomy who presented to the emergency department with worsening headache rated at 10/10, pressure/neck pain for several days with left upper quadrant abdominal pain rated 8/10 for 1 day which worsens upon standing but denies any visual problems. Upon arrival patient's blood pressure was 174/77 was admitted to L&D started on mag sulfate drip. Hospitalist group was consulted for persistent hypertension. Patient has a history of having a headache after delivery on 02/17 under epidural anesthesia and was evaluated by anesthesia prior to discharge. On 02/23 patient was reevaluated by anesthesia and offered a blood patch due to continued complaints of headache/neck stiffness with back pain and would like to try Toradol since it improved her symptoms last time per anesthesia's note. However on 02/24 patient proceeded with an epidural blood patch due to continued headaches which were worse by anesthesia with improvement to her headache. Patient will be transferred to [facility] and accepting physician is Dr. Doyle. Preeclampsia Subarachnoid hemorrhage h/o post dural puncture headache treated with blood patch Hypertension Headaches History of migraines Tobacco abuse -[facility] and neurosurgery consulted, appreciate recommendations -S/p IV magnesium sulfate -s/p delivery on 02/17 with epidural -02/25 CT head shows blood products in the fourth ventricle and other subarachnoid locations, developing hydrocephalus cannot be excluded with no focal intraexam no mass or large infarct appreciated -02/25 CTA head neck shows blood products or dural based lesion/thickening identified -02/25 CTA neck shows no significant stenosis appreciated in the CTA of the neck -02/26 MRI brain shows scattered subarachnoid hemorrhage along the prepontine/premedullary cistern, fourth ventricle and cerebral convexities bilaterally, continues to have prominence of the temporal horns with mild periventricular hyperintensity, no definite intracranial enhancing lesions appreciated -Hydralazine as needed -P.o. labetalol -As needed 2 mg morphine and Percocet 5/325 -Smoking cessation encouraged Disposition: DC/TX-[id number] ANOTHER TYPE [facility] Final Discharge Diagnosis (Prints w/discharge instructions): SAH, Preecclampsia, HTN, Migraines, h/o of dural puncture h/a treated with blood patch Time spent for discharge: 45 Core Measure Documentation - Palliative Care Palliative Care/ Comfort Measures: Not Applicable - Core Measures Any of the following diagnoses?: none Exam - Constitutional Vitals: Temp Pulse Resp BP Pulse Ox 98.9 F 86 24 136/73 97 02/26/21 12:16 02/26/21 13:30 02/26/21 13:20 02/26/21 13:30 02/26/21 13:20 General appearance: Present: mild distress - EENT Eyes: Present: PERRL ENT: clear oral mucosa, dentition normal - Neck Neck: Present: normal ROM - Respiratory Respiratory effort: normal Respiratory: bilateral: CTA - Cardiovascular Rhythm: regular Heart Sounds: Present: S1 & S2. Absent: systolic murmur, diastolic murmur - Extremities Extremities: no ischemia, pulses intact, pulses symmetrical, No edema, normal temperature, normal color, Full ROM Peripheral Pulses: within normal limits - Abdominal General gastrointestinal: Present: soft, non-tender, non-distended, normal bowel sounds - Integumentary Integumentary: Present: clear, warm, dry - Musculoskeletal Musculoskeletal: strength equal bilaterally - Psychiatric Psychiatric: cooperative - Neurologic Neurologic: CNII-XII intact, no focal deficits, moves all extremities - Allied Health Allied health notes reviewed: nursing Plan Activity: advance as tolerated Diet: low fat, low cholesterol, low salt Special Instructions: record daily weights, record daily BP diary, smoking cessation Care Plan Goals: Care is being transferred to [facility] Assessment: Agree with assessment and total evaluation [id number] with nurse practitioner and nursing staff. Complete conversation with Dr. Honeycutt neurosurgeon [facility]. Follow up with: DONOVAN STRINGER MD [Primary Care Provider] - 7 Days <KEITH VASQUEZ - Last Filed: 02/26/21 18:09> Providers - Providers Date of Admission: 02/23/21 13:56 Attending physician: BRYSON WHITTINGTON JR, MD 02/23/21 16:33 Consult to Anesthesiology [CONS] Routine Consulting Provider: MARY FABIAN Reason For Exam: Pt c/o headache and neck pain. Had a with epi 02/23/21 16:49 Consult to Physician [CONS] Routine Comment: Consulting Provider: KEITH VASQUEZ Physician Instructions: PLEASE EVALUATE AND TREAT Reason For Exam: worsening FENG, neck pain, LUQ abd pain 02/25/21 22:02 Consult to Physician [CONS] Routine Comment: Consulting Provider: SARAH AGUILERA II Physician Instructions: Reason For Exam: SAH 02/25/21 23:37 Consult to Physician [CONS] Routine Comment: Consulting Provider: SONNY ELIZONDO Physician Instructions: Reason For Exam: SAH Primary care physician: DONOVAN STRINGER Exam - Constitutional Vitals: Temp Pulse Resp BP Pulse Ox 100.5 F H 72 24 147/73 96 02/26/21 16:39 02/26/21 18:00 02/26/21 16:00 02/26/21 18:00 02/26/21 18:00
[2021-02-26] MEDS: MORPHINE 2 MG/1 ML INJ IV PRN ×2 (16:21→19:22)
--- NOTE | 2021-02-26 18:35 | Consultation ---
History of Present Illness Consult date: 02/26/21 Reason for Consult: Subarachnoid hemorrhage Chief complaint: headache History of present illness: Whit Blanchard is a 35 y/o Female that presented to [facility] a few days ago for management of elevated BP. She delivered a healthy baby last week. Her course was complicated by csf leak following epidural anesthesia, which required a blood patch. She returned to her OBGYN on Monday and was admitted to the hospital due to markedly elevated bp. CT scan was obtained on yesterday due to intractable headaches. It revealed 4th ventricular hemorrhage and pre-pontine and pre-medullary SAH. Follow up CTA was negative for aneurysm or vascular malformation. Presently, she complains of mild to moderate headache without nausea or vomiting. She denies any weakness or numbness of her extremities. Past History Social history: , smoking, full code Medications and Allergies Allergies Allergy/AdvReac Type Severity Reaction Status Date / Time Sulfa (Sulfonamide Allergy Severe Swelling Verified 02/19/21 11:38 Antibiotics) Home Medications Medication Instructions Recorded Confirmed Last Taken Type Acetaminophen [Acetaminophen TAB] 650 mg PO Q6H PRN tablet 02/26/21 Unknown Rx SUMAtriptan succinate [Imitrex] 50 mg PO Q4H PRN tablet 02/26/21 Unknown Rx hydrALAZINE [Apresoline INJ] 10 mg IV Q30MIN PRN vial 02/26/21 Unknown Rx labetaloL [Labetalol 100mg TAB] 100 mg PO Q8HR tablet 02/26/21 Unknown Rx oxyCODONE /ACETAMINOPHEN [Percocet 1 tab PO Q4H PRN tablet 02/26/21 Unknown Rx 5/325 mg] Active Meds: Active Medications Acetaminophen (Acetaminophen 325 Mg Tab) 650 mg PO Q6H PRN PRN Reason: Pain, Moderate (4-6) Last Admin: 02/23/21 22:17 Dose: 650 mg Documented by: Cyclobenzaprine HCl (Cyclobenzaprine 10 Mg Tab) 10 mg PO TID MIKY Last Admin: 02/26/21 13:31 Dose: 10 mg Documented by: Hydralazine HCl (Hydralazine 20 Mg/1 Ml Inj) 10 mg IV Q30MIN PRN PRN Reason: Blood Pressure Last Admin: 02/26/21 08:28 Dose: 10 mg Documented by: Magnesium Sulfate (Magnesium Sulfate 40gm/1000ml) 40 gm in 1,000 mls @ 50 mls/hr IV DIRECT MIKY Last Infusion: 02/24/21 15:34 Dose: 0 gm/hr, 0 mls/hr Documented by: Lactated Ringer's (Lactated Ringers) 1,000 mls @ 75 mls/hr IV DIRECT MIKY Last Admin: 02/26/21 04:33 Dose: 75 mls/hr Documented by: Labetalol HCl (Labetalol 100 Mg Tab) 100 mg PO Q8HR MIKY Last Admin: 02/26/21 13:30 Dose: 100 mg Documented by: Morphine Sulfate (Morphine 2 Mg/1 Ml Inj) 2 mg IV Q4H PRN PRN Reason: Pain, Moderate (4-6) Last Admin: 02/26/21 16:21 Dose: 2 mg Documented by: Nicotine (Nicotine 14 Mg/24 Hr Patch) 14 mg TD QDAY [facility] Last Admin: 02/26/21 12:08 Dose: 14 mg Documented by: Ondansetron HCl (Ondansetron 4 Mg/2 Ml Inj) 4 mg IV Q6H PRN PRN Reason: Nausea And Vomiting Last Admin: 02/26/21 09:25 Dose: 4 mg Documented by: Oxycodone/Acetaminophen (Oxycodone /Acetaminophen 5-325mg Tab) 1 tab PO Q4H PRN PRN Reason: Pain, Moderate (4-6) Last Admin: 02/26/21 12:07 Dose: 1 tab Documented by: Sumatriptan Succinate (Sumatriptan Succinate 50 Mg Tab) 50 mg PO Q4H PRN PRN Reason: Headache Last Admin: 02/26/21 04:29 Dose: 50 mg Documented by: Review of Systems All systems: negative (what is specified in HPI) Physical Examination - Vital Signs Vital Signs: Vital Signs Temp Pulse Resp BP 98.3 F 46 L 20 174/77 02/23/21 14:30 02/23/21 14:30 02/23/21 14:30 02/23/21 14:30 - Physical Exam Narrative exam: seen and examined no acute distress NC/AT RRR breathing non-labored abdomen soft no cyanosis or clubbing A&Ox3 CNII-XII intact motor strength full throughout sensation intact to light touch reflexes +2 no drift reflexes symmetric Results - Laboratory Findings CBC and BMP: 02/26/21 10:44 02/26/21 10:44 Abnormal Lab Findings: Abnormal Labs 02/23/21 02/23/21 02/24/21 14:40 14:40 00:59 WBC RDW 16.2 H Potassium Creatinine 0.4 L Magnesium 4.70 H Lactate Dehydrogenase 363 H 02/24/21 02/24/21 02/26/21 05:54 13:19 10:44 WBC 12.5 H RDW 16.3 H Potassium Creatinine Magnesium 5.10 H 5.60 H Lactate Dehydrogenase 02/26/21 10:44 WBC RDW Potassium 3.2 L Creatinine 0.4 L Magnesium Lactate Dehydrogenase Assessment and Plan Whit Blanchrad is a 35 y/o F w/ post SAH, stable -recommend emergent transfer to [facility] for 4V angiogram and further care -SBP < 140 at all times -recommend treating headache but avoid over-sedation -q1h neuro checks -please notify if questions
[2021-02-26 20:53] VITALS: BP 137/62
== END 2021-02-26 20:20 | disposition short-term general hospital (02) | DRG 776 ==
LOC: UNDOADMIN 13:41 → 3A 13:41 → LD 13:56 → OB 02-24 16:59 → CC1 02-25 23:07
PROVIDERS: ADMIT Obstetrics & Gynecology; ATTEND Obstetrics & Gynecology
PROC: 3E0R3GC Introduction of Other Therapeutic Substance into Spinal Canal, Percutaneous Approach (ICD-10-PCS; principal; 2021-02-24)
DX: O14.95 Unspecified pre-eclampsia, complicating the puerperium (principal); Z88.2 Allergy status to sulfonamides; O99.355 Diseases of the nervous system complicating the puerperium; G43.909 Migraine, unspecified, not intractable, without status migrainosus; O89.4 Spinal and epidural anesthesia-induced headache during the puerperium; O99.43 Diseases of the circulatory system complicating the puerperium; I60.9 Nontraumatic subarachnoid hemorrhage, unspecified; O99.335 Smoking (tobacco) complicating the puerperium; F17.200 Nicotine dependence, unspecified, uncomplicated
CPT/HCPCS: 36415; 70450; 70490; 70496; 70498; 70553; 80048; 80307; 81001; 82565; 82962; 83615; 83735; 84100; 84450; 84460; 84550; 85027; 99406; G0378; A9575; J0360; J0461; J1885; J2270; J2405; J2710; J3475; J7120; Q0177; Q9967